=== PATIENT | female | born 1950 | race Caucasian/White ===

== ENCOUNTER → 2016-10-23 | Outpatient (CLI) | payer MEDICARE, OTHER ==
[~2016-10-23] MED LIST: /CELE20CA OR; /CLON1TA OR; /ESCI20TA OR; /ESOM40CA OR; /ROPI1TA PO; /WARF25TA PO; ACET50TA PO; ALB2.5NEB INH; ASPIRIN PO; BENZ100C5 PO; BYSTOLIC OR; CELEBREX PO; CETI10TA OR; CYMB60CA3 PO; DIOV320T OR; ESTR3TA OR; GLUC40GE PO; HYDR25TA6 OR; LEVO50TA2 OR; META800T82 PO; METF500T PO; MOME50SP; NASONEX; NORV5TAB OR; OXYB5TAB4 OR; OXYBUTIN PO; PERC7.5T12 PO; PERCOCET PO; PREG50CA OR; PROAAER INH; ROSU10TA OR; ST J81CH PO; TRIL135C PO; TYLE325T5 PO; VICODINES TAB OR; VIT D 2000 OR; ZYRTEC PO
--- NOTE | 2016-11-15 00:20 | ECWPNPC ---
PATIENT NAME: KUSHAL GARNETT : 1950 GENDER: FEMALE VISIT DATE: 10/23/2016 DISCHARGE DATE: 10/23/16 1505 VISIT LOCKED DATE TIME: PHYSICIAN: ALEKSANDER HIRSCH RESOURCE: ALEKSANDER HIRSCH REASON FOR APPOINTMENT 1. LOW BACK PAIN HISTORY OF PRESENT ILLNESS NEW PATIENT CONSULT: WHEN DID YOUR PAIN FIRST START? . BRIEFLY DESCRIBE HOW YOUR PAIN STARTED? . HOW DOES YOUR PAIN CHANGE WITH TIME? . DOES YOUR PAIN AWAKEN YOU FROM SLEEP? . HOW MANY HOURS OF SLEEP DO YOU NORMALLY GET? . ANY DIAGNOSTIC TESTING? . FACILITY WHERE TESTS WERE DONE? ____. PAIN TREATMENT TREATMENT YES CANCER HAVE YOU EVER HAD ANY TYPE OF CANCER?NO NO. PAIN SCREENING: PATIENT HAS A COMPLAINT OF ACUTE OR CHRONIC PAIN YES FALL RISK SCREENING: SCREENING :NO FALLS IN THE PAST YEAR NASH INVENTORY: QUESTIONNAIRE ASSESSEDYES SCORE VALUE CALCULATED YES SCORE: DENIES SUICIDAL OR HOMICIDAL IDEATION TODAY'S VISIT: NOTES: HAS HAD PERSISTANT BACK PAIN SINCE PREGNAY IN 1967. PAIN HAS GOTTEN WORSE IN LAST 2 YEARS. PAIN IS LOCATED IN SCIATIC RADIATING DOWN BOTH LEGS. WALKING INCREASING PAIN IN BUTTUCK. CAN ALTERNATE OR BE ON BOTH SIDES AT THE SAME TIME. N/T IN FEET 80% OF TIME FELT TO BE SECONDARY TO DPN. HARD TO STAND UP - NEEDS ASSISTANCE. CAN NOT WALK A DISTANCE. STRUGGLING TO CLIMB STEPS, LIFTING RIGHT LEG TO CAR. LEGS FEEL WEAK. HAS FALLEN MULTIPLE TIMES - CAN'T CONTROL FEET. IS ABLE TO SLEEP AFTER GETS COMFORTABLE. HAS BEEN TO PT YEARS AGO. NI, WAS SEEN HERE BY DR TIMBO GREENE AT [facility] YEARS AGO. (2011) . CURRENT MEDICATIONS TAKING METFORMIN HCL 500 MG TABLET 1 TABLET WITH MEALS ORALLY 3 TIMES A DAY TAKING BENZONATATE 100 MG CAPSULE 2 CAPSULES ORALLY THREE TIMES A DAY TAKING NASONEX 50 MCG/ACT SUSPENSION 2 SPRAYS IN EACH NOSTRIL NASALLY ONCE A DAY TAKING CLONIDINE HCL 0.1 MG TABLET 1 TABLET AT BEDTIME ORALLY THREE TIMES A DAY TAKING AMLODIPINE BESYLATE 5 MG TABLET 1 TABLET ORALLY ONCE A DAY TAKING HYDROCHLOROTHIAZIDE 25 MG TABLET 1 TABLET ORALLY ONCE A DAY TAKING NEXIUM 40 MG CAPSULE DELAYED RELEASE 1 CAPSULE ORALLY ONCE A DAY TAKING CYMBALTA 60 MG CAPSULE DELAYED RELEASE PARTICLES 1 CAPSULE ORALLY ONCE A DAY TAKING LEVOTHYROXINE SODIUM 88 MCG TABLET 1 TABLET ON AN EMPTY STOMACH IN THE MORNING ORALLY ONCE A DAY TAKING TRILIPIX 135 MG CAPSULE DELAYED RELEASE 1 CAPSULE ORALLY ONCE A DAY TAKING BYSTOLIC 10 MG TABLET 1 TABLET ORALLY ONCE A DAY TAKING CELEBREX 200 MG CAPSULE 1 CAPSULE ORALLY ONCE A DAY TAKING OXYBUTYNIN CHLORIDE ER 10 MG TABLET EXTENDED RELEASE 24 HOUR 1 TABLET ORALLY ONCE A DAY TAKING DIOVAN 320 MG TABLET 1 TABLET ORALLY ONCE A DAY TAKING LYRICA 50 MG CAPSULE 1 CAPSULE ORALLY FOUR TIMES A DAY TAKING HYDROCODONE-ACETAMINOPHEN 7.5-300 MG TABLET 1 TABLET NEEDED ORALLY TWICE DAILY TAKING ZYRTEC ALLERGY 10 MG TABLET 1 TABLET ORALLY ONCE A DAY TAKING REQUIP 1 MG TABLET ORALLY ONE TABLET AT BEDTIME NEEDED TAKING BONIVA 150 MG TABLET 1 TABLET ORALLY MONTHLY MEDICATION LIST REVIEWED AND RECONCILED WITH THE PATIENT PAST MEDICAL HISTORY ESOPHAGEAL REFLUX ENLARGED HEART HYPERTENSION HYPERCHOLESTEROLEMIA HYPOTHYROIDISM DIABETES MALLITUS ARTHRITIS ASTHMA IBS-D ALLERGIES PENICILLIN (FOR ALLERGIES USE ONLY): HIVES, SWELLING: ALLERGY SHELLFISH SURGICAL HISTORY HYSTERECTOMY 1977 CHOLECYSTECTOMY RIGHT SHOULDER CARPAL TUNNEL RELEASE RIGHT CARPAL TUNNEL RELEASE LEFT KNEE REPLACEMENT 2012 BLADDER LIFT 2012 LENSES KNEE REPLACEMENT 2013 FAMILY HISTORY FATHER: 74 YRS, LUNG DISEASE MOTHER: 57 YRS, [place], DIAGNOSED WITH HEART DISEASE SOCIAL HISTORY GENERAL: TOBACCO USE ARE YOU A:CURRENT SMOKER ALCOHOL SCREENING DID YOU HAVE A DRINK CONTAINING ALCOHOL IN THE PAST YEAR?NO POINTS0 INTERPRETATIONNEGATIVE RECREATIONAL DRUG USE DRUG USE?NO CAFFEINE CAFFEINE USE?NO CONGREGATION: DENOMINATIONAL. LANGUAGE: GEORGIAN. LEARNING BARRIERS / SPECIAL NEEDS BARRIERS TO LEARNING?YES COMMENTS HEARING IMPAIRED HEARING IMPAIRED?YES :HEARING AIDES LOOK AT PT WHEN SPEAKING TO HER. VISION IMPAIRED?YES :CORRECTIVE LENSES READINESS TO LEARN?YES LEARNING PREFERENCES?NO LEARNING CAPABILITIES PRESENT?YES EMOTIONAL BARRIERS?NO SPECIAL DEVICES?NO PSYCHOLOGICAL HX TREATMENTNO PAIN CLINIC PFS, CLERGY, PUBLIC HEALTH REFERRALS PFS REFERRAL NEEDED?NO CLERGY REFERRAL NEEDED?NO PUBLIC HEALTH REFERRAL NEEDED?NO WAS THE PROVIDER NOTIFIED OF ANY PERTINENT INFO?NO PATIENT: ____. ADVANCED DIRECTIVES HEALTH CARE PROXY?NO POWER OF HOSPICE HOME HEALTH AIDE?NO HOSPITALIZATION/MAJOR DIAGNOSTIC PROCEDURE SURGERIES REVIEW OF SYSTEMS CONSTITUTIONAL: ANY CHANGE IN YOUR MEDICAL CONDITION? NO . CHILLS NO . FEVER NO . INFECTION: DO YOU HAVE NEW INFECTIONS? NO . DO YOU HAVE HISTORY OF MRSA? NO . MUSCULOSKELETAL: ANY NEW PATTERNS OF PAIN OR NUMBNESS? NO . SYTEMIC LUPUS NO . GASTROENTEROLOGY: ANY NEW CHANGE IN BOWEL CONTROL? NO - IBS-D ON IMMODIUM . BARRETTS ESOPHAGUS NO . CIRRHOSIS NO . HEPATITIS NO . LIVER FAILURE NO . ACID REFLUX YES NEXIUM WITH GOOD EFFECT . UNEXPLAINED WEIGHT LOSS NO . GENITOURINARY: ANY NEW CHANGE IN BLADDER CONTROL? NO . IS THERE A CHANCE YOU COULD BE ? NO . HEMATOLOGY/LYMPH: DO YOU TAKE ANY BLOOD THINNERS? (FOR EXAMPLE- COUMADIN, PLAVIX, AGGRENOX, PLATEL, PRADAXA, OR XARELTO) NO . WHEN WAS YOUR LAST DOSE? DATE: TIME: . LOW PLATELET COUNT NO . SICKLE CELL DISEASE NO . VON WILLIEBRANDS NO . FACTOR V LEIDEN NO . THALLASEMIA NO . ANEMIA NO . EASY BRUISING NO . NEUROLOGY: HAVE YOU FALLEN IN THE PAST 6 MONTHS? NO . ANY NEW EXTREMITY NUMBNESS OR WEAKNESS? NO . HEAD INJURY NO . DEMENTIA NO . CEREBRAL PALSY NO . MULTIPLE SCLEROSIS NO . DIZZINESS NO . HEADACHE NO . STROKES NO . VERTIGO YES WITH TINNITUS AND HEARING LOSS. IS GOING TO BE SEEN BY ENT . CARDIOLOGY: DO YOU HAVE A PACEMAKER OR DEFIBRILLATOR? NO . ANGINA NO . HEART ATTACK NO . HEART SURGERY NO . CONGESTIVE HEART FAILURE/FLUID OVERLOAD NO . CHEST PAIN NO . HIGH BLOOD PRESSURE YES, HX OF ENLARGED HEART . IRREGULAR HEART BEAT NO . RESPIRATORY: HAVE YOU BEEN SICK IN THE PAST WEEK? NO . FEVER NO . FLU LIKE SYMPTOMS? NO . CPAP NO . BYPAP NO . ASTHMA NO . EMPHYSEMA NO . CHRONIC LUNG DISEASES NO . SHORTNESS OF BREATH ON EXERTION NO . DO YOU USE ANY TYPE OF TOBACCO (SMOKE, SMOKELESS, CHEW)? NO . COUGH NO . SNORING NO . INTEGUMENTARY: DO YOU HAVE ANY RASHES OR OPEN SORES? NO . ALLERGIC/IMMUNO: ARE YOU ALLERGIC TO SHELLFISH OR IV DYE? NO . ANY NEW ALLERGIES? NO . PSYCHIATRIC: DO YOU HAVE THOUGHTS OF HURTING YOURSELF OR SOMEONE ELSE? NO . ARE YOU ABUSED, NEGLECTED, OR IN AN UNSAFE ENVIRONMENT? NO . ENDOCRINOLOGY: ARE YOU DIABETIC? YES - ELAVATED RECENTLY . THYROID DISORDER NO . OTHER: DO YOU NEED ANY PRESCRIPTIONS? NO . IF YES, PLEASE LIST: ____ . ANY NEW PROBLEMS WITH YOUR MEDICATIONS? NO . WHEN DID YOU LAST EAT? ____ . WHEN DID YOU LAST DRINK? ____ . WHAT DID YOU LAST DRINK? ____ . NAME OF PERSON DRIVING YOU HOME? ____ . DO YOU HAVE ANY OTHER QUESTIONS OR CONCERNS NO . REVIEWED BY: PROVIDER: ALEKSANDER THOMAS . VITAL SIGNS WT 213.6 LBS, HT 65", BMI 35.54 INDEX, BP 165/88 MM HG, HR 71 /MIN, RR 16 /MIN, TEMP 98.6 F, OXYGEN SAT % 96, NA INITIALS TL 1317, REVIEWED BY: LS. EXAMINATION GENERAL EXAMINATION: PSYCHORIENTED X 3 , ALERT , APPROPRIATE MOOD AND AFFECT , GOOD EYE CONTACT. HEENT:NORMOCEPHALIC, NO LYMPHADENOPATHY, NO THYROMEGLY. LUNGS:CLEAR TO AUSCULTATION BILATERALLY, NO WHEEZES, RALES OR RHONCHI. HEART:HEART RATE REGULAR, NORMAL S1S2, NO MURMURS, CLICK OR RUBS. MUSCULOSKELETAL:MUSCLE STRENGTH TESTING 5/5 BILATERAL LOWER EXTTREMITIES. POINT TENDERNESS OVER LUMBAR SPINAOUS PROCESSES AND ACROSS LUMBOSACRAL AXIS. NO MING WITH PELVIC COMPRESSION. SLR POSITIVE AT 30 DEGREES ON LEFT. CAN FLEX TO 45 DEGREES, EXTEND TO 10 DEGREES, AND ROTATE WITHOUT DIFFICULTY. . NEUROLOGIC EXAM:DECREASED SENSATION IN STOCKINGGLOVE FASHION TO MID CALF BILATERALLY. DTR'S TRACE/ABSENTIN BILATERAL LOWER EXTREMITIES. . ASSESSMENTS LOW BACK PAIN - M54.5 (PRIMARY) OTHER CHRONIC PAIN - G89.29 LUMBAR RADICULOPATHY - M54.16 GAIT DISTURBANCE - R26.9 TREATMENT LOW BACK PAIN [facility] WITHOUT [id number] INJECTION FACET JOINT/NERVE LUMBAR/SACRALWALALEKSANDER PANDA 10/23/2016 2:45:04 PM > DIAGNOSTIC LUMBAR BILATERAL FACET BLOCK NOTES: CONSIDER PARVIN CREAM WITH LIDOCAINE TO LOW BACK 4 TIMES PER DAY,FACET JOINT INJECTION: YOUR EXPERIENCE MATERIAL WAS PRINTED, FALLS CARE PLAN: 1. RECOMMEND REMOVING ALL THROW RUGS. 2. RECOMMEND NIGHT LIGHTS 3. RECOMMEND WEARING RUBBER SOLED SHOES AND TO NOT GO BAREFOOT. 4.. ADVISED TO CHANGE POSITION SLOWLY FROM SUPINE TO STANDING TO AVOID DIZZINESS. 5. ADVISED TO USE ASSISTIVE DEVICE SUCH CANE OR WALKER 6. USE LIFELINE SERVICES OR KEEP PORTABLE PHONE READILY AVAILABLE, # [phone] TOBACCO USE SCREENING/INTERVENTION: PATIENT CURRENTLY USED TOBACCO. WAS OFFERED SMOKING CESSATION FOR GUIDANCE IN QUITTING THROUGH THE [facility] QUITS PROGRAM AND THE [facility] CESSATION PROGRAM. , #128 - SCREENING BMI AND F/U PLAN IN : BMI ABOVE NORMAL TODAY. DISCUSSED WITH PATIENT NUTRITIONAL FOOD CHOICES TO ASSIST WITH WEIGHT LOSS. RECCOMMENDED REDUCING SALT, SUGAR, SODA INTAKE. RECOMMEND INCREASE ACTIVITY TO INCLUDE WALKING ON A REGULAR BASIS. CLINICAL NOTES: ISTOP REGISTRY REVIEWED AND DEMNOSTRATES COMPLLIANCE. PREVENTIVE MEDICINE PAIN CLINIC TEACHING: PROCEDURE TEACHING PRE DIAGNOSTIC LUMBAR FACET BLOCK INSTRUCTIONS REVIEWED WITH PT. VERBALIZED UNDERSTANDING. KRAMES FACET INJECTION INFORMATION PRINTED AND GIVEN TO PT. . PROCEDURE CODES FA211 ESTABILISHED PATIENT [facility] FACILITY CHARGE G8783 BP SCR PRFRM RCMDD DEFIND SCR INTVL G8730 PAIN ASSESS POS TOOL F/U PLAN DOC 3016F PT SCRND UNHLTHY OH USE 1124F ACP DISCUSS-NO DSCNMKR DOCD 0518F FALL PLAN OF CARE DOCD G8427 DOC MEDS VERIFIED W/PT OR RE G8417 BMI >=30 CALCUATE W/FOLLOWUP 3288F FALL RISK ASSESSMENT DOCD 4004F PT TOBACCO SCREEN RCVD TLK FOLLOW UP SCHEDULE FOR DIAGNOSTIC LUMBAR FACET BLOCK BILATERAL IN ONE MONTH (REASON: CHECK AUTH FOR LUMBAR MRI AND DIAGNOSTIC LUMBAR FACET BLOCK) ELECTRONICALLY SIGNED BY JARED APONTE ON 11/14/2016 AT 01:40 PM EST DISCLAIMER : THIS IS A VISIT SUMMARY [facility]TRACTED FROM [facility]. IT IS NOT A COPY OF THE [employer] PROGRESS NOTE. MTDD
== END ==
LOC: M PAIN 13:20
PROVIDERS: ATTEND Nurse Practitioner Family
DX: G89.29 Other chronic pain (principal); M54.16 Radiculopathy, lumbar region; R26.9 Unspecified abnormalities of gait and mobility; K21.9 Gastro-esophageal reflux disease without esophagitis; I51.7 Cardiomegaly; I10 Essential (primary) hypertension; E78.00 Pure hypercholesterolemia, unspecified; E03.9 Hypothyroidism, unspecified; E11.9 Type 2 diabetes mellitus without complications; M19.90 Unspecified osteoarthritis, unspecified site; J45.909 Unspecified asthma, uncomplicated; K58.0 Irritable bowel syndrome with diarrhea; Z88.0 Allergy status to penicillin; Z91.013 Allergy to seafood; F17.200 Nicotine dependence, unspecified, uncomplicated; Z79.84 Long term (current) use of oral hypoglycemic drugs; Z79.891 Long term (current) use of opiate analgesic; Z79.899 Other long term (current) drug therapy; Z86.69 Personal history of other diseases of the nervous system and sense organs

== ENCOUNTER → 2016-12-07 | Outpatient (CLI) | payer MEDICARE, OTHER ==
[~2016-12-07] MED LIST changes: +BUPIVACAINE HCL 0.25% 30 ML VIAL As Ordered ONE; +ISOVUE-M 300 61% 15ML VIAL (Q9967) As Ordered ONE; +LIDOCAINE 1% SDV INJ 30 ML VIAL As Ordered ONE
--- NOTE | 2016-12-07 12:34 | REP ---
PARTIAL LUMBAR SPINE SERIES: SINGLE VIEW. HISTORY: Lumbar facet block for pain. 33 seconds of fluoroscopy time is reported. FINDINGS: A single fluoroscopically obtained last image hold spot radiograph of the lumbar spine documents various needle positions and contrast injections associated with lumbar spine facet injection procedure. Signed by Manny Rojas MD 12/07/2016 04:45 P
--- NOTE | 2016-12-12 23:06 | ECWPNPC ---
PATIENT NAME: KUSHAL GARNETT : 1950 GENDER: FEMALE VISIT DATE: 12/07/2016 DISCHARGE DATE: 12/07/16 1034 VISIT LOCKED DATE TIME: PHYSICIAN: ARNOLD QUINONES RESOURCE: ARNOLD QUINONES REASON FOR APPOINTMENT 1. LFBD HISTORY OF PRESENT ILLNESS HISTORY OF PRESENT ILLNESS: PAIN THE PATIENT DESCRIBES THE PAIN... FALL RISK SCREENING: SCREENING :NO FALLS IN THE PAST YEAR CURRENT MEDICATIONS TAKING METFORMIN HCL 500 MG TABLET 1 TABLET WITH MEALS ORALLY 3 TIMES A DAY, NOTES: 12/06/162029 TAKING BENZONATATE 100 MG CAPSULE 2 CAPSULES ORALLY THREE TIMES A DAY, NOTES: NONE RECENTLY TAKING NASONEX 50 MCG/ACT SUSPENSION 2 SPRAYS IN EACH NOSTRIL NASALLY ONCE A DAY NEEDED, NOTES: NONE RECENTLY TAKING CLONIDINE HCL 0.1 MG TABLET 1 TABLET ORALLY THREE TIMES A DAY, NOTES: 12/06/162029 TAKING AMLODIPINE BESYLATE 5 MG TABLET 1 TABLET ORALLY ONCE A DAY, NOTES: 12/07/16599 TAKING HYDROCHLOROTHIAZIDE 25 MG TABLET 1 TABLET ORALLY ONCE A DAY, NOTES: 12/07/16599 TAKING NEXIUM 40 MG CAPSULE DELAYED RELEASE 1 CAPSULE ORALLY ONCE A DAY, NOTES: 12/07/16599 TAKING CYMBALTA 60 MG CAPSULE DELAYED RELEASE PARTICLES 1 CAPSULE ORALLY ONCE A DAY, NOTES: 12/07/16599 TAKING LEVOTHYROXINE SODIUM 88 MCG TABLET 1 TABLET ON AN EMPTY STOMACH IN THE MORNING ORALLY ONCE A DAY, NOTES: 12/07/16599 TAKING TRILIPIX 135 MG CAPSULE DELAYED RELEASE 1 CAPSULE ORALLY ONCE A DAY, NOTES: 12/07/16599 TAKING BYSTOLIC 10 MG TABLET 1 TABLET ORALLY ONCE A DAY, NOTES: 12/07/16599 TAKING CELEBREX 200 MG CAPSULE 1 CAPSULE ORALLY ONCE A DAY, NOTES: 12/07/16599 TAKING OXYBUTYNIN CHLORIDE ER 10 MG TABLET EXTENDED RELEASE 24 HOUR 1 TABLET ORALLY ONCE A DAY, NOTES: 12/07/16599 TAKING DIOVAN 320 MG TABLET 1 TABLET ORALLY ONCE A DAY, NOTES: 12/07/16599 TAKING LYRICA 50 MG CAPSULE 1 CAPSULE ORALLY FOUR TIMES A DAY, NOTES: 12/07/16599 TAKING HYDROCODONE-ACETAMINOPHEN 7.5-300 MG TABLET 1 TABLET NEEDED ORALLY TWICE DAILY, NOTES: MORE THAN A WEEK AGO TAKING ZYRTEC ALLERGY 10 MG TABLET 1 TABLET ORALLY ONCE A DAY NEEDED, NOTES: LAST FALL TAKING REQUIP 1 MG TABLET ORALLY ONE TABLET AT BEDTIME NEEDED, NOTES: NONE RECENTLY TAKING BONIVA 150 MG TABLET 1 TABLET ORALLY MONTHLY, NOTES: 11/07/16 MEDICATION LIST REVIEWED AND RECONCILED WITH THE PATIENT PAST MEDICAL HISTORY ESOPHAGEAL REFLUX ENLARGED HEART HYPERTENSION HYPERCHOLESTEROLEMIA HYPOTHYROIDISM DIABETES MALLITUS ARTHRITIS ASTHMA IBS-D ALLERGIES PENICILLIN (FOR ALLERGIES USE ONLY): HIVES, SWELLING: ALLERGY SHELLFISH SURGICAL HISTORY HYSTERECTOMY 1977 CHOLECYSTECTOMY RIGHT SHOULDER CARPAL TUNNEL RELEASE RIGHT CARPAL TUNNEL RELEASE LEFT KNEE REPLACEMENT 2013 BLADDER LIFT 2011 LENSES KNEE REPLACEMENT 2014 FAMILY HISTORY FATHER: 74 YRS, LUNG DISEASE LUNG DISEASE MOTHER: 57 YRS, [place], DIAGNOSED WITH HEART DISEASE SOCIAL HISTORY GENERAL: TOBACCO USE ARE YOU A:CURRENT SMOKER LEARNING BARRIERS / SPECIAL NEEDS ORIENTED TO PLAN OF CARE: PATIENT, PAIN MANAGEMENT PATIENT, ORIENTED TO PLAN OF CARE: PATIENT, PAIN MANAGEMENT PATIENT. NEW PATIENT PAIN DIARY TODAY'S VISITNOTES FROM 0-10, WHAT LEVEL IS YOUR PAIN TODAY?0 PAIN CLINIC PFS, CLERGY, PUBLIC HEALTH REFERRALS PFS REFERRAL NEEDED?NO CLERGY REFERRAL NEEDED?NO PUBLIC HEALTH REFERRAL NEEDED?NO WAS THE PROVIDER NOTIFIED OF ANY PERTINENT INFO?NO PFS REFERRAL NEEDED?NO CLERGY REFERRAL NEEDED?NO PUBLIC HEALTH REFERRAL NEEDED?NO WAS THE PROVIDER NOTIFIED OF ANY PERTINENT INFO?NO HOSPITALIZATION/MAJOR DIAGNOSTIC PROCEDURE SURGERIES REVIEW OF SYSTEMS CONSTITUTIONAL: ANY CHANGE IN YOUR MEDICAL CONDITION? NO . CHILLS NO . FEVER NO . INFECTION: DO YOU HAVE NEW INFECTIONS? NO . DO YOU HAVE HISTORY OF MRSA? NO . MUSCULOSKELETAL: ANY NEW PATTERNS OF PAIN OR NUMBNESS? NO . GASTROENTEROLOGY: ANY NEW CHANGE IN BOWEL CONTROL? NO . GENITOURINARY: ANY NEW CHANGE IN BLADDER CONTROL? NO . IS THERE A CHANCE YOU COULD BE ? NO . HEMATOLOGY/LYMPH: DO YOU TAKE ANY BLOOD THINNERS? (FOR EXAMPLE- COUMADIN, PLAVIX, AGGRENOX, PLATEL, PRADAXA, OR XARELTO) NO . WHEN WAS YOUR LAST DOSE? DATE: TIME: . NEUROLOGY: HAVE YOU FALLEN IN THE PAST 6 MONTHS? NO . ANY NEW EXTREMITY NUMBNESS OR WEAKNESS? NO . CARDIOLOGY: DO YOU HAVE A PACEMAKER OR DEFIBRILLATOR? NO . RESPIRATORY: HAVE YOU BEEN SICK IN THE PAST WEEK? NO . FEVER NO . FLU LIKE SYMPTOMS? NO . COUGH NO . INTEGUMENTARY: DO YOU HAVE ANY RASHES OR OPEN SORES? NO . ALLERGIC/IMMUNO: ARE YOU ALLERGIC TO SHELLFISH OR IV DYE? NO . ANY NEW ALLERGIES? NO . PSYCHIATRIC: DO YOU HAVE THOUGHTS OF HURTING YOURSELF OR SOMEONE ELSE? NO . ARE YOU ABUSED, NEGLECTED, OR IN AN UNSAFE ENVIRONMENT? NO . ENDOCRINOLOGY: ARE YOU DIABETIC? YES . OTHER: DO YOU NEED ANY PRESCRIPTIONS? NO . IF YES, PLEASE LIST: ____ . ANY NEW PROBLEMS WITH YOUR MEDICATIONS? NO . WHEN DID YOU LAST EAT? 1800 . WHEN DID YOU LAST DRINK? 0630 . WHAT DID YOU LAST DRINK? YVROSE VALERIE . NAME OF PERSON DRIVING YOU HOME? SHIVAM GARNETT . DO YOU HAVE ANY OTHER QUESTIONS OR CONCERNS NO . REVIEWED BY: PROVIDER: . VITAL SIGNS WT 213 LBS, HT 65", BMI 35.44 INDEX, BP 168/77 MM HG, HR 67 /MIN, RR 16 /MIN, TEMP 98.5 F, OXYGEN SAT % 96, NA INITIALS TL 0904, REVIEWED BY: LS. ASSESSMENTS SPONDYLOSIS WITHOUT MYELOPATHY OR RADICULOPATHY, LUMBAR REGION - M47.816 (PRIMARY) SPONDYLOSIS WITHOUT MYELOPATHY OR RADICULOPATHY, LUMBOSACRAL REGION - M47.817 PROCEDURES PN LUMBAR FACET BLOCK DIAGNOSTIC PRE PROCEDURE DIAGNOSIS LUMBAR SPONDYLOSIS, LUMBOSACRAL SPONDYLOSIS POST PROCEDURE DIAGNOSIS LUMBAR SPONDYLOSIS, LUMBOSACRAL SPONDYLOSIS PROCEDURE LEFT L4-L5 AND LEFT L5-S1 FACET BLOCK DIAGNOSTIC NUMBER #[address] ARNOLD QUINONES SUPERVISOR DECORATING NONE ANESTHESIA LOCAL PRE PROCEDURE NOTE THE PATIENT WITH HISTORY OF CHRONIC LOW BACK PAIN. I EVALUATED THE PATIENT AND REVIEWED THE CHART. I WENT OVER THE RISKS, ALTERNATIVES, AND BENEFITS ASSOCIATED WITH THIS PROCEDURE. THE PATIENT WOULD LIKE TO PROCEED AND GAVE CONSENT TO PERFORM THE PROCEDURE. AGREED WITH THE PATIENT WE ARE DOING THIS PROCEDURE TO DETERMINE IF THE PATIENT IS A CANDIDATE FOR A RADIOFREQUENCY ABLATION OF THE FACETS JOINTS. THE PATIENT DENIES UNEXPLAINABLE WEIGHT LOSS, FEVER, CHILLS, OR NEW CHANGES IN URINARY OR BOWEL CONTROL. DESCRIPTION OF PROCEDURE THE PATIENT WAS BROUGHT TO THE PROCEDURE ROOM AND PLACED IN THE PRONE POSITION. THE LUMBOSACRAL AREA WAS CLEANED WITH CHLORAPREP SOLUTION AND DRAPED ASEPTICALLY. THE PROCEDURE WAS DONE UNDER STERILE CONDITIONS. I CHECKED LATERALITY AND THE LEVEL WHERE THE PROCEDURE WAS GOING TO BE PERFORMED WITH THE PATIENT AND THE SUPPORTING STAFF AT THE MOMENT OF THE TIME OUT IN THE PROCEDURE ROOM. UNDER FLUOROSCOPIC GUIDANCE, TARGETS WERE SELECTED AT THE INTERSECTION OF THE LEFT TRANSVERSE PROCESS OF L4, L5 AND ALA OF S1 WITH ITS RESPECTIVE SUPERIOR ARTICULAR PROCESS. LIDOCAINE WAS USED TO NUMB THE SKIN AND THE SUBCUTANEOUS TISSUE BELOW IT. SPINAL NEEDLE, 22-GAUGE WAS ADVANCED UNDER FLUOROSCOPIC GUIDANCE AND FOLLOWING PATIENT FEEDBACK UNTIL THE TARGETS WERE REACHED. POSITION OF THE NEEDLES WAS VERIFIED WITH AP AND LATERAL VIEWS. AFTER PROPER POSITION OF THE NEEDLES WAS ACHIEVED, ISOVUE-M DYE 30% 0.1 ML WAS INJECTED AT EACH SITE SHOWING ADEQUATE SPREAD OF THE DYE. THEN A SOLUTION OF 0.4 ML OF BUPIVACAINE 0.25% WAS INJECTED AT EACH SITE. THERE WAS NO EVIDENCE OF BLOOD, PARESTHESIA OR CEREBROSPINAL FLUID DURING THE PROCEDURE. THE PATIENT WAS SENT TO THE RECOVERY ROOM. THE PATIENT WAS MOVING THE EXTREMITIES AND DOING WELL. THERE WAS NO COMPLICATION DURING THE PROCEDURE. FLUOROSCOPY TIME WAS 33 SECONDS POST PROCEDURE NOTE THE PATIENT WILL DOCUMENT HIS PAIN LEVEL AND RESPONSE TO THIS PROCEDURE EVERY 30 MINUTES. THE PATIENT WILL BE SEEN IN A FOLLOW UP IN THE NEXT FEW WEEKS. FURTHER DETERMINATION FOR HIS CASE WILL BE DONE AT THE NEXT VISIT. INSTRUCTIONS WERE GIVEN, QUESTIONS WERE ANSWERED, AND THE PATIENT EXPRESSED UNDERSTANDING AND AGREED WITH THE PLAN. INSTRUCTIONS WERE GIVEN, QUESTIONS WERE ANSWERED, PATIENT REPORTS UNDERSTANDING AND AGREES WITH THE PLAN. I, RACHEL REDD, DOCUMENTED THE ABOVE INFORMATION ACTING A SCRIBE FOR DR. QUINONES. I HAVE REVIEWED THE ABOVE DOCUMENT, WRITTEN BY RACHEL REDD SCRIBAlana AND I VERIFY THAT IT IS ACCURATE. DIAGNOSTIC IMAGING [facility] FACET BLOCK (PAIN)[id number] PROCEDURE CODES 83597 INJ PARAVERT F JNT L/S 1 LEV 18733 INJ PARAVERT F JNT L/S 2 LEV 6045F RADXPS IN END [id number] PXD DISPOSITION & COMMUNICATION FOLLOW UP 3 WEEKS ELECTRONICALLY SIGNED BY ARNOLD QUINONES MD ON 12/12/2016 AT 06:47 AM EST DISCLAIMER : THIS IS A VISIT SUMMARY EXTRACTED FROM THE [employer] CHART. IT IS NOT A COPY OF THE [employer] PROGRESS NOTE. MTDD
== END ==
LOC: M PAIN 08:40
PROVIDERS: ATTEND Anesthesiology
DX: G89.29 Other chronic pain (principal); M47.816 Spondylosis without myelopathy or radiculopathy, lumbar region; M47.817 Spondylosis without myelopathy or radiculopathy, lumbosacral region; K21.9 Gastro-esophageal reflux disease without esophagitis; I10 Essential (primary) hypertension; E78.00 Pure hypercholesterolemia, unspecified; E03.9 Hypothyroidism, unspecified; E11.9 Type 2 diabetes mellitus without complications; M19.90 Unspecified osteoarthritis, unspecified site; J45.909 Unspecified asthma, uncomplicated; K58.0 Irritable bowel syndrome with diarrhea; I51.7 Cardiomegaly; Z88.0 Allergy status to penicillin; Z91.013 Allergy to seafood; F17.200 Nicotine dependence, unspecified, uncomplicated; Z79.84 Long term (current) use of oral hypoglycemic drugs; Z79.899 Other long term (current) drug therapy
CPT/HCPCS: 64493; 64494; Q9967

== ENCOUNTER → 2017-01-07 | Outpatient (CLI) | payer MEDICARE, OTHER ==
[~2017-01-07] MED LIST changes: -BUPIVACAINE HCL 0.25% 30 ML VIAL As Ordered ONE; -ISOVUE-M 300 61% 15ML VIAL (Q9967) As Ordered ONE; -LIDOCAINE 1% SDV INJ 30 ML VIAL As Ordered ONE
--- NOTE | 2017-01-17 00:57 | ECWPNPC ---
PATIENT NAME: KUSHAL GARNETT : 1950 GENDER: FEMALE VISIT DATE: 01/07/2017 DISCHARGE DATE: 01/07/17 1236 VISIT LOCKED DATE TIME: PHYSICIAN: ALEKSANDER HIRSCH RESOURCE: ALEKSANDER HIRSCH HISTORY OF PRESENT ILLNESS HISTORY OF PRESENT ILLNESS: PAIN THE PATIENT DESCRIBES THE PAIN... FALL RISK SCREENING: SCREENING :NO FALLS IN THE PAST YEAR TODAY'S VISIT: NOTES: S/P LEFT DIAGAGNOSTIC LUMBAR FACET BLOCK #1 COMPLETED ON 12/07/16 AT L4-5 AND L5-S1. HAD 100 % RELIEF OF PAIN UNTIL NEXT MORNING AFTER PROCEDURE - THEN HAD 2 RANJEET DAYS WITH PAIN 03/16 AND 12/14 AND THEN PAIN WAS AGAIN SIGNIFICANTLY RELIEVED. . CURRENT MEDICATIONS TAKING METFORMIN HCL 500 MG TABLET 1 TABLET WITH MEALS ORALLY 3 TIMES A DAY, NOTES: 12/06/162029 TAKING BENZONATATE 100 MG CAPSULE 2 CAPSULES ORALLY THREE TIMES A DAY, NOTES: NONE RECENTLY TAKING NASONEX 50 MCG/ACT SUSPENSION 2 SPRAYS IN EACH NOSTRIL NASALLY ONCE A DAY NEEDED, NOTES: NONE RECENTLY TAKING CLONIDINE HCL 0.1 MG TABLET 1 TABLET ORALLY THREE TIMES A DAY, NOTES: 12/06/162029 TAKING AMLODIPINE BESYLATE 5 MG TABLET 1 TABLET ORALLY ONCE A DAY, NOTES: 12/07/16599 TAKING HYDROCHLOROTHIAZIDE 25 MG TABLET 1 TABLET ORALLY ONCE A DAY, NOTES: 12/07/16599 TAKING NEXIUM 40 MG CAPSULE DELAYED RELEASE 1 CAPSULE ORALLY ONCE A DAY, NOTES: 12/07/16599 TAKING CYMBALTA 60 MG CAPSULE DELAYED RELEASE PARTICLES 1 CAPSULE ORALLY ONCE A DAY, NOTES: 12/07/16599 TAKING LEVOTHYROXINE SODIUM 88 MCG TABLET 1 TABLET ON AN EMPTY STOMACH IN THE MORNING ORALLY ONCE A DAY, NOTES: 12/07/16599 TAKING TRILIPIX 135 MG CAPSULE DELAYED RELEASE 1 CAPSULE ORALLY ONCE A DAY, NOTES: 12/07/16599 TAKING BYSTOLIC 10 MG TABLET 1 TABLET ORALLY ONCE A DAY, NOTES: 12/07/16599 TAKING CELEBREX 200 MG CAPSULE 1 CAPSULE ORALLY ONCE A DAY, NOTES: 12/07/16599 TAKING OXYBUTYNIN CHLORIDE ER 10 MG TABLET EXTENDED RELEASE 24 HOUR 1 TABLET ORALLY ONCE A DAY, NOTES: 12/07/16599 TAKING DIOVAN 320 MG TABLET 1 TABLET ORALLY ONCE A DAY, NOTES: 12/07/16 0600 TAKING LYRICA 50 MG CAPSULE 1 CAPSULE ORALLY THREE TIMES DAILY, NOTES: 12/07/16 0600 TAKING HYDROCODONE-ACETAMINOPHEN 7.5-300 MG TABLET 1 TABLET NEEDED ORALLY TWICE DAILY, NOTES: MORE THAN A WEEK AGO TAKING ZYRTEC ALLERGY 10 MG TABLET 1 TABLET ORALLY ONCE A DAY NEEDED, NOTES: LAST FALL TAKING REQUIP 1 MG TABLET ORALLY ONE TABLET AT BEDTIME NEEDED, NOTES: NONE RECENTLY TAKING BONIVA 150 MG TABLET 1 TABLET ORALLY MONTHLY, NOTES: 11/07/16 TAKING JANUVIA 100 MG TABLET 1 TABLET ORALLY ONCE A DAY TAKING VITAMIN D 1000 UNIT TABLET 1 TABLET ORALLY ONCE A DAY MEDICATION LIST REVIEWED AND RECONCILED WITH THE PATIENT PAST MEDICAL HISTORY ESOPHAGEAL REFLUX ENLARGED HEART HYPERTENSION HYPERCHOLESTEROLEMIA HYPOTHYROIDISM DIABETES MALLITUS ARTHRITIS ASTHMA IBS-D ALLERGIES PENICILLIN (FOR ALLERGIES USE ONLY): HIVES, SWELLING: ALLERGY SHELLFISH DARVOCET-N 100 SOCIAL HISTORY GENERAL: PAIN CLINIC PFS, CLERGY, PUBLIC HEALTH REFERRALS CLERGY REFERRAL NEEDED?NO WAS THE PROVIDER NOTIFIED OF ANY PERTINENT INFO?NO PFS REFERRAL NEEDED?NO PUBLIC HEALTH REFERRAL NEEDED?NO PATIENT: ____. REVIEW OF SYSTEMS CONSTITUTIONAL: ANY CHANGE IN YOUR MEDICAL CONDITION? YES PT REPORTS RECENT BOUT OF BRONCHITIS, ON A Z-PACK 12/29. FEELS HER COUGHING HAS EXACERBATED HER BACK PAIN. BRONCHITIS IS RESOLVING. . CHILLS NO . FEVER NO . INFECTION: DO YOU HAVE NEW INFECTIONS? NO . DO YOU HAVE HISTORY OF MRSA? NO . MUSCULOSKELETAL: ANY NEW PATTERNS OF PAIN OR NUMBNESS? NO . GASTROENTEROLOGY: GENERAL RECENT GI BUG WITH DIARRHEA AND HAS HISTORY OF IBS . ANY NEW CHANGE IN BOWEL CONTROL? NO . GENITOURINARY: ANY NEW CHANGE IN BLADDER CONTROL? NO . IS THERE A CHANCE YOU COULD BE ? NO . HEMATOLOGY/LYMPH: DO YOU TAKE ANY BLOOD THINNERS? (FOR EXAMPLE- COUMADIN, PLAVIX, AGGRENOX, PLATEL, PRADAXA, OR XARELTO) NO . WHEN WAS YOUR LAST DOSE? DATE: TIME: . NEUROLOGY: HAVE YOU FALLEN IN THE PAST 6 MONTHS? NO . ANY NEW EXTREMITY NUMBNESS OR WEAKNESS? NO . CARDIOLOGY: DO YOU HAVE A PACEMAKER OR DEFIBRILLATOR? NO . RESPIRATORY: HAVE YOU BEEN SICK IN THE PAST WEEK? NO . FEVER NO . FLU LIKE SYMPTOMS? NO . COUGH IMPROVING - RECENT BRONCHITIS ON ABX . INTEGUMENTARY: DO YOU HAVE ANY RASHES OR OPEN SORES? NO . ALLERGIC/IMMUNO: ARE YOU ALLERGIC TO SHELLFISH OR IV DYE? NO . ANY NEW ALLERGIES? NO . PSYCHIATRIC: DO YOU HAVE THOUGHTS OF HURTING YOURSELF OR SOMEONE ELSE? NO . ARE YOU ABUSED, NEGLECTED, OR IN AN UNSAFE ENVIRONMENT? NO . ENDOCRINOLOGY: ARE YOU DIABETIC? YES - MEDS RECENTLY INCREASED. . OTHER: DO YOU NEED ANY PRESCRIPTIONS? NO . IF YES, PLEASE LIST: ____ . ANY NEW PROBLEMS WITH YOUR MEDICATIONS? NO . WHEN DID YOU LAST EAT? ____ . WHEN DID YOU LAST DRINK? ____ . WHAT DID YOU LAST DRINK? ____ . NAME OF PERSON DRIVING YOU HOME? ____ . DO YOU HAVE ANY OTHER QUESTIONS OR CONCERNS NO . REVIEWED BY: PROVIDER: ALEKSANDER THOMAS . VITAL SIGNS WT 213 LBS, HT 65", BMI 35.44 INDEX, BP 138/76 MM HG, HR 66 /MIN, RR 16 /MIN, TEMP 98.5 F, OXYGEN SAT % 94%, NA INITIALS SC 11:26. EXAMINATION GENERAL EXAMINATION: PSYCHORIENTED X 3 , ALERT , APPROPRIATE MOOD AND AFFECT , GOOD EYE CONTACT. LUNGS:CLEAR TO AUSCULTATION BILATERALLY, NO WHEEZES, RALES OR RHONCHI. HEART:HEART RATE REGULAR. MUSCULOSKELETAL:MUSCLE STRENGTH TESTING 5/5 BILATERAL LOWER EXTTREMITIES. POINT TENDERNESS OVER LUMBAR SPINAOUS PROCESSES AND ACROSS LUMBOSACRAL AXIS.SLOW TO RISE TO STANDING POSITION. POSTURE UPRIGHT, GAIT NONANTALGIC.. NEUROLOGIC EXAM:DECREASED SENSATION IN STOCKINGGLOVE FASHION TO MID CALF BILATERALLY. DTR'S TRACE/ABSENTIN BILATERAL LOWER EXTREMITIES. . ASSESSMENTS SPONDYLOSIS WITHOUT MYELOPATHY OR RADICULOPATHY, LUMBAR REGION - M47.816 (PRIMARY) SPONDYLOSIS WITHOUT MYELOPATHY OR RADICULOPATHY, LUMBOSACRAL REGION - M47.817 TREATMENT SPONDYLOSIS WITHOUT MYELOPATHY OR RADICULOPATHY, LUMBAR REGION INJECTION FACET JOINT/NERVE LUMBAR/SACRALALEKSANDER HIRSCH 01/07/2017 12:17:09 PM > DIAGNOSTIC # 2 LEFT NOTES: USE ICE AND HEAT. MEDS NEEDED. PREVENTIVE MEDICINE PAIN CLINIC TEACHING: PROCEDURE TEACHING REVIEWED LFBD PROCEDURE WITH PT, PT VERBALIZES UNDERSTANDING. PROCEDURE CODES FA211 ESTABILISHED PATIENT [facility] CHARGE G8730 PAIN ASSESS POS TOOL F/U PLAN DOC G8427 DOC MEDS VERIFIED W/PT OR RE DISPOSITION & COMMUNICATION FOLLOW UP 4-6 WEEKS (REASON: CHECK AUTH FOR DIAGNOSTIC #2) ELECTRONICALLY SIGNED BY JARED APONTE ON 01/16/2017 AT 07:11 PM EDT DISCLAIMER : THIS IS A VISIT SUMMARY EXTRACTED FROM THE [employer] CHART. IT IS NOT A COPY OF THE [employer] PROGRESS NOTE. ELVIND
== END | disposition home or self-care (01) ==
LOC: M PAIN 11:20
PROVIDERS: ATTEND Nurse Practitioner Family
DX: Z09 Encounter for follow-up examination after completed treatment for conditions other than malignant neoplasm (principal); G89.29 Other chronic pain; M47.816 Spondylosis without myelopathy or radiculopathy, lumbar region; M47.817 Spondylosis without myelopathy or radiculopathy, lumbosacral region; K21.9 Gastro-esophageal reflux disease without esophagitis; I10 Essential (primary) hypertension; E78.00 Pure hypercholesterolemia, unspecified; E03.9 Hypothyroidism, unspecified; E11.9 Type 2 diabetes mellitus without complications; M19.90 Unspecified osteoarthritis, unspecified site; J45.990 Exercise induced bronchospasm; K58.0 Irritable bowel syndrome with diarrhea; I51.7 Cardiomegaly; Z79.899 Other long term (current) drug therapy; Z79.84 Long term (current) use of oral hypoglycemic drugs; Z88.0 Allergy status to penicillin; Z88.5 Allergy status to narcotic agent; Z91.013 Allergy to seafood

== ENCOUNTER → 2017-01-22 | Outpatient (CLI) | payer MEDICARE, OTHER ==
[~2017-01-22] MED LIST changes: +BUPIVACAINE HCL 0.25% 30 ML VIAL As Ordered ONE; +ISOVUE-M 300 61% 15ML VIAL (Q9967) As Ordered ONE; +LIDOCAINE 1% SDV INJ 30 ML VIAL As Ordered ONE
--- NOTE | 2017-01-22 13:35 | REP ---
PARTIAL LUMBAR SPINE SERIES: Three views. HISTORY: Facet injection for pain. 28 seconds of fluoroscopy time is reported. FINDINGS: A sequence of three last image hold fluoroscopic spot radiographs of the lumbar spine document various needle positions and contrast injections associated with lumbar facet injection procedure. Signed by Manny Rojas MD 01/22/2017 03:40 P
--- NOTE | 2017-01-27 23:46 | ECWPNPC ---
PATIENT NAME: KUSHAL GARNETT : 1950 GENDER: FEMALE VISIT DATE: 01/22/2017 DISCHARGE DATE: 01/22/17 1218 VISIT LOCKED DATE TIME: PHYSICIAN: ARNOLD QUINONES RESOURCE: ARNOLD QUINONES REASON FOR APPOINTMENT 1. DIAG LUMBAR FACET # 2 HISTORY OF PRESENT ILLNESS HISTORY OF PRESENT ILLNESS: PAIN THE PATIENT DESCRIBES THE PAIN... FALL RISK SCREENING: SCREENING :NO FALLS IN THE PAST YEAR CURRENT MEDICATIONS TAKING METFORMIN HCL 500 MG TABLET 1 TABLET WITH MEALS ORALLY 3 TIMES A DAY, NOTES: 2229 LAST NIGHT TAKING BENZONATATE 100 MG CAPSULE 2 CAPSULES ORALLY THREE TIMES A DAY, NOTES: NONE RECENTLY TAKING NASONEX 50 MCG/ACT SUSPENSION 2 SPRAYS IN EACH NOSTRIL NASALLY ONCE A DAY NEEDED, NOTES: NONE RECENTLY TAKING CLONIDINE HCL 0.1 MG TABLET 1 TABLET ORALLY THREE TIMES A DAY, NOTES: 2229 LAST ROSENDA TAKING AMLODIPINE BESYLATE 5 MG TABLET 1 TABLET ORALLY ONCE A DAY, NOTES: 69901/22/17 TAKING HYDROCHLOROTHIAZIDE 25 MG TABLET 1 TABLET ORALLY ONCE A DAY, NOTES: 69901/22/17 TAKING NEXIUM 40 MG CAPSULE DELAYED RELEASE 1 CAPSULE ORALLY ONCE A DAY, NOTES: YESTERDAY AM TAKING CYMBALTA 60 MG CAPSULE DELAYED RELEASE PARTICLES 1 CAPSULE ORALLY ONCE A DAY, NOTES: YESTERDAY AM TAKING LEVOTHYROXINE SODIUM 88 MCG TABLET 1 TABLET ON AN EMPTY STOMACH IN THE MORNING ORALLY ONCE A DAY, NOTES: YESTERDAY AM TAKING TRILIPIX 135 MG CAPSULE DELAYED RELEASE 1 CAPSULE ORALLY ONCE A DAY, NOTES: YESTERDAY AM TAKING BYSTOLIC 10 MG TABLET 1 TABLET ORALLY ONCE A DAY, NOTES: 0701/22/17 TAKING CELEBREX 200 MG CAPSULE 1 CAPSULE ORALLY ONCE A DAY, NOTES: YESTERDAY AM TAKING OXYBUTYNIN CHLORIDE ER 10 MG TABLET EXTENDED RELEASE 24 HOUR 1 TABLET ORALLY ONCE A DAY, NOTES: YESTERDAY ASM TAKING DIOVAN 320 MG TABLET 1 TABLET ORALLY ONCE A DAY, NOTES: YESTERDAY AM TAKING LYRICA 50 MG CAPSULE 1 CAPSULE ORALLY THREE TIMES DAILY, NOTES: YESTERDAY AM TAKING HYDROCODONE-ACETAMINOPHEN 7.5-300 MG TABLET 1 TABLET NEEDED ORALLY TWICE DAILY, NOTES: OVER 3 DAYS TAKING ZYRTEC ALLERGY 10 MG TABLET 1 TABLET ORALLY ONCE A DAY NEEDED, NOTES: LAST MONTH TAKING REQUIP 1 MG TABLET ORALLY ONE TABLET AT BEDTIME NEEDED, NOTES: 3 NIGHTS AGO TAKING BONIVA 150 MG TABLET 1 TABLET ORALLY MONTHLY, NOTES: JANUARY 05 TAKING JANUVIA 100 MG TABLET 1 TABLET ORALLY ONCE A DAY, NOTES: YESTERDAY AM TAKING VITAMIN D 1000 UNIT TABLET 1 TABLET ORALLY ONCE A DAY, NOTES: YESTERDAY AM MEDICATION LIST REVIEWED AND RECONCILED WITH THE PATIENT PAST MEDICAL HISTORY ESOPHAGEAL REFLUX ENLARGED HEART HYPERTENSION HYPERCHOLESTEROLEMIA HYPOTHYROIDISM DIABETES MALLITUS ARTHRITIS ASTHMA IBS-D ALLERGIES PENICILLIN (FOR ALLERGIES USE ONLY): HIVES, SWELLING: ALLERGY SHELLFISH DARVOCET-N 100 SURGICAL HISTORY HYSTERECTOMY 1977 CHOLECYSTECTOMY RIGHT SHOULDER CARPAL TUNNEL RELEASE RIGHT CARPAL TUNNEL RELEASE LEFT KNEE REPLACEMENT 2013 BLADDER LIFT 2011 LENSES KNEE REPLACEMENT 2013 SOCIAL HISTORY GENERAL: PAIN CLINIC PFS, CLERGY, PUBLIC HEALTH REFERRALS CLERGY REFERRAL NEEDED?NO WAS THE PROVIDER NOTIFIED OF ANY PERTINENT INFO?NO PFS REFERRAL NEEDED?NO PUBLIC HEALTH REFERRAL NEEDED?NO PATIENT: ____. HOSPITALIZATION/MAJOR DIAGNOSTIC PROCEDURE SURGERIES REVIEW OF SYSTEMS CONSTITUTIONAL: ANY CHANGE IN YOUR MEDICAL CONDITION? NO . CHILLS NO . FEVER NO . INFECTION: DO YOU HAVE NEW INFECTIONS? NO . DO YOU HAVE HISTORY OF MRSA? NO . MUSCULOSKELETAL: ANY NEW PATTERNS OF PAIN OR NUMBNESS? NO . GASTROENTEROLOGY: ANY NEW CHANGE IN BOWEL CONTROL? NO . GENITOURINARY: ANY NEW CHANGE IN BLADDER CONTROL? NO . IS THERE A CHANCE YOU COULD BE ? NO . HEMATOLOGY/LYMPH: DO YOU TAKE ANY BLOOD THINNERS? (FOR EXAMPLE- COUMADIN, PLAVIX, AGGRENOX, PLATEL, PRADAXA, OR XARELTO) NO . WHEN WAS YOUR LAST DOSE? DATE: TIME: . NEUROLOGY: HAVE YOU FALLEN IN THE PAST 6 MONTHS? NO . ANY NEW EXTREMITY NUMBNESS OR WEAKNESS? NO . CARDIOLOGY: DO YOU HAVE A PACEMAKER OR DEFIBRILLATOR? NO . RESPIRATORY: HAVE YOU BEEN SICK IN THE PAST WEEK? NO . FEVER NO . FLU LIKE SYMPTOMS? NO . COUGH NO . INTEGUMENTARY: DO YOU HAVE ANY RASHES OR OPEN SORES? NO . ALLERGIC/IMMUNO: ARE YOU ALLERGIC TO SHELLFISH OR IV DYE? YES, SHELLFISH . ANY NEW ALLERGIES? NO . PSYCHIATRIC: DO YOU HAVE THOUGHTS OF HURTING YOURSELF OR SOMEONE ELSE? NO . ARE YOU ABUSED, NEGLECTED, OR IN AN UNSAFE ENVIRONMENT? NO . ENDOCRINOLOGY: ARE YOU DIABETIC? YES . OTHER: DO YOU NEED ANY PRESCRIPTIONS? NO . IF YES, PLEASE LIST: ____ . ANY NEW PROBLEMS WITH YOUR MEDICATIONS? NO . WHEN DID YOU LAST EAT? 830 PM . WHEN DID YOU LAST DRINK? 01/22/17 0700 . WHAT DID YOU LAST DRINK? YVROSE VALERIE . NAME OF PERSON DRIVING YOU HOME? SHIVAM GARNETT . DO YOU HAVE ANY OTHER QUESTIONS OR CONCERNS NO . REVIEWED BY: PROVIDER: . VITAL SIGNS WT 212 LBS, HT 65", BMI 35.27 INDEX, BP 142/69 MM HG, HR 69 /MIN, RR 16 /MIN, TEMP 97.7 F, OXYGEN SAT % 98%, NA INITIALS SC 10:11, REVIEWED BY: NL. ASSESSMENTS SPONDYLOSIS WITHOUT MYELOPATHY OR RADICULOPATHY, LUMBAR REGION - M47.816 (PRIMARY) SPONDYLOSIS WITHOUT MYELOPATHY OR RADICULOPATHY, LUMBOSACRAL REGION - M47.817 PROCEDURES PN LUMBAR FACET BLOCK DIAGNOSTIC PRE PROCEDURE DIAGNOSIS LUMBAR SPONDYLOSIS, LUMBOSACRAL SPONDYLOSIS POST PROCEDURE DIAGNOSIS LUMBAR SPONDYLOSIS, LUMBOSACRAL SPONDYLOSIS PROCEDURE LEFT L4-L5 AND LEFT L5-S1 FACET BLOCK DIAGNOSTIC NUMBER [address] ARNOLD QUINONES WOOD STRIP BLOCK FLOOR INSTALLER NONE ANESTHESIA LOCAL PRE PROCEDURE NOTE THE PATIENT WITH HISTORY OF CHRONIC LOW BACK PAIN. I EVALUATED THE PATIENT AND REVIEWED THE CHART. I WENT OVER THE RISKS, ALTERNATIVES, AND BENEFITS ASSOCIATED WITH THIS PROCEDURE. THE PATIENT WOULD LIKE TO PROCEED AND GAVE CONSENT TO PERFORM THE PROCEDURE. AGREED WITH THE PATIENT WE ARE DOING THIS PROCEDURE TO DETERMINE IF THE PATIENT IS A CANDIDATE FOR A RADIOFREQUENCY ABLATION OF THE FACETS JOINTS. THE PATIENT DENIES UNEXPLAINABLE WEIGHT LOSS, FEVER, CHILLS, OR NEW CHANGES IN URINARY OR BOWEL CONTROL DESCRIPTION OF PROCEDURE THE PATIENT WAS BROUGHT TO THE PROCEDURE ROOM AND PLACED IN THE PRONE POSITION. THE LUMBOSACRAL AREA WAS CLEANED WITH CHLORAPREP SOLUTION AND DRAPED ASEPTICALLY. THE PROCEDURE WAS DONE UNDER STERILE CONDITIONS. I CHECKED LATERALITY AND THE LEVEL WHERE THE PROCEDURE WAS GOING TO BE PERFORMED WITH THE PATIENT AND THE SUPPORTING STAFF AT THE MOMENT OF THE TIME OUT IN THE PROCEDURE ROOM. UNDER FLUOROSCOPIC GUIDANCE, TARGETS WERE SELECTED AT THE INTERSECTION OF THE LEFT TRANSVERSE PROCESS OF L4, L5 AND ALA OF S1 WITH ITS RESPECTIVE SUPERIOR ARTICULAR PROCESS. LIDOCAINE WAS USED TO NUMB THE SKIN AND THE SUBCUTANEOUS TISSUE BELOW IT. SPINAL NEEDLE, 22-GAUGE WAS ADVANCED UNDER FLUOROSCOPIC GUIDANCE AND FOLLOWING PATIENT FEEDBACK UNTIL THE TARGETS WERE REACHED. POSITION OF THE NEEDLES WAS VERIFIED WITH AP AND LATERAL VIEWS. AFTER PROPER POSITION OF THE NEEDLES WAS ACHIEVED, ISOVUE-M DYE 30% 0.1 ML WAS INJECTED AT EACH SITE SHOWING ADEQUATE SPREAD OF THE DYE. THEN A SOLUTION OF 0.4 ML OF BUPIVACAINE 0.25% WAS INJECTED AT EACH SITE. THERE WAS NO EVIDENCE OF BLOOD, PARESTHESIA OR CEREBROSPINAL FLUID DURING THE PROCEDURE. THE PATIENT WAS SENT TO THE RECOVERY ROOM. THE PATIENT WAS MOVING THE EXTREMITIES AND DOING WELL. THERE WAS NO COMPLICATION DURING THE PROCEDURE. FLUOROSCOPY TIME WAS 28 SECONDS POST PROCEDURE NOTE THE PATIENT WILL DOCUMENT HIS PAIN LEVEL AND RESPONSE TO THIS PROCEDURE EVERY 30 MINUTES. THE PATIENT WILL BE SEEN IN A FOLLOW UP IN THE NEXT FEW WEEKS. FURTHER DETERMINATION FOR HIS CASE WILL BE DONE AT THE NEXT VISIT. INSTRUCTIONS WERE GIVEN, QUESTIONS WERE ANSWERED, AND THE PATIENT EXPRESSED UNDERSTANDING AND AGREED WITH THE PLAN. INSTRUCTIONS WERE GIVEN, QUESTIONS WERE ANSWERED, PATIENT REPORTS UNDERSTANDING AND AGREES WITH THE PLAN. I, EYAD CALI, DOCUMENTED THE ABOVE INFORMATION ACTING A SCRIBE FOR DR. QUINONES. I HAVE REVIEWED THE ABOVE DOCUMENT, WRITTEN BY EYAD CALI SCRIBAlana AND I VERIFY THAT IT IS ACCURATE DIAGNOSTIC IMAGING [facility] FACET BLOCK (PAIN)[id number] PROCEDURE CODES 41848 INJ PARAVERT F JNT L/S 1 LEV 15630 INJ PARAVERT F JNT L/S 2 LEV 6045F RADXPS IN END [id number] PXD DISPOSITION & COMMUNICATION FOLLOW UP 3 WEEKS ELECTRONICALLY SIGNED BY ARNOLD QUINONES MD ON 01/27/2017 AT 05:05 PM EDT DISCLAIMER : THIS IS A VISIT SUMMARY EXTRACTED FROM THE [employer] CHART. IT IS NOT A COPY OF THE [employer] PROGRESS NOTE. MTDD
== END | disposition home or self-care (01) ==
LOC: M PAIN 10:20
PROVIDERS: ATTEND Anesthesiology
DX: G89.29 Other chronic pain (principal); M47.816 Spondylosis without myelopathy or radiculopathy, lumbar region; M47.817 Spondylosis without myelopathy or radiculopathy, lumbosacral region; I10 Essential (primary) hypertension; J45.909 Unspecified asthma, uncomplicated; E11.9 Type 2 diabetes mellitus without complications; J21.9 Acute bronchiolitis, unspecified; E78.00 Pure hypercholesterolemia, unspecified; E03.9 Hypothyroidism, unspecified; M19.90 Unspecified osteoarthritis, unspecified site; K58.0 Irritable bowel syndrome with diarrhea; I51.7 Cardiomegaly; Z79.899 Other long term (current) drug therapy; Z79.84 Long term (current) use of oral hypoglycemic drugs; Z88.0 Allergy status to penicillin; Z88.5 Allergy status to narcotic agent; Z91.013 Allergy to seafood
CPT/HCPCS: 64493; 64494; Q9967

== ENCOUNTER → 2017-02-13 | Outpatient (CLI) | payer MEDICARE, OTHER ==
[~2017-02-13] MED LIST changes: -BUPIVACAINE HCL 0.25% 30 ML VIAL As Ordered ONE; -ISOVUE-M 300 61% 15ML VIAL (Q9967) As Ordered ONE; -LIDOCAINE 1% SDV INJ 30 ML VIAL As Ordered ONE
--- NOTE | 2017-03-06 02:20 | ECWPNPC ---
PATIENT NAME: KUSHAL GARNETT : 1950 GENDER: FEMALE VISIT DATE: 02/13/2017 DISCHARGE DATE: 02/13/17 1153 VISIT LOCKED DATE TIME: PHYSICIAN: ALEKSANDER HIRSCH RESOURCE: ALEKSANDER HIRSCH REASON FOR APPOINTMENT 1. POST PROCEDURE HISTORY OF PRESENT ILLNESS HISTORY OF PRESENT ILLNESS: PAIN THE PATIENT DESCRIBES THE PAIN... FALL RISK SCREENING: SCREENING :NO FALLS IN THE PAST YEAR TODAY'S VISIT: NOTES: FOLLOW UP FOR LOW BACK PAIN S/P #2 DIAGNOSTIC LUMBAR FACET BLOCK AT L4-5 AND L5-S1 LEFT ON 01/22/17. NOTES PAIN PRIOR TO INJECTION WAS 6-7/10 IN THE LEFT SACRUM,; POST INJECTION WAS 0/10 FOR 3 DAYS. HAD BAD DAY ON 02/10/17 WITH PAIN RADIATING DOWN LEFT LEG TO LEVEL OF ANKLE. NO RECENT FALLS. . CURRENT MEDICATIONS TAKING METFORMIN HCL 500 MG TABLET 1 TABLET WITH MEALS ORALLY 3 TIMES A DAY TAKING BENZONATATE 100 MG CAPSULE 2 CAPSULES ORALLY THREE TIMES A DAY PRN TAKING NASONEX 50 MCG/ACT SUSPENSION 2 SPRAYS IN EACH NOSTRIL NASALLY ONCE A DAY NEEDED TAKING CLONIDINE HCL 0.1 MG TABLET 1 TABLET ORALLY THREE TIMES A DAY TAKING AMLODIPINE BESYLATE 5 MG TABLET 1 TABLET ORALLY ONCE A DAY TAKING HYDROCHLOROTHIAZIDE 25 MG TABLET 1 TABLET ORALLY ONCE A DAY TAKING NEXIUM 40 MG CAPSULE DELAYED RELEASE 1 CAPSULE ORALLY ONCE A DAY TAKING CYMBALTA 60 MG CAPSULE DELAYED RELEASE PARTICLES 1 CAPSULE ORALLY ONCE A DAY TAKING LEVOTHYROXINE SODIUM 88 MCG TABLET 1 TABLET ON AN EMPTY STOMACH IN THE MORNING ORALLY ONCE A DAY TAKING TRILIPIX 135 MG CAPSULE DELAYED RELEASE 1 CAPSULE ORALLY ONCE A DAY TAKING BYSTOLIC 10 MG TABLET 1 TABLET ORALLY ONCE A DAY TAKING CELEBREX 200 MG CAPSULE 1 CAPSULE ORALLY ONCE A DAY TAKING OXYBUTYNIN CHLORIDE ER 10 MG TABLET EXTENDED RELEASE 24 HOUR 1 TABLET ORALLY ONCE A DAY TAKING DIOVAN 320 MG TABLET 1 TABLET ORALLY ONCE A DAY TAKING LYRICA 50 MG CAPSULE 1 CAPSULE ORALLY THREE TIMES DAILY TAKING HYDROCODONE-ACETAMINOPHEN 7.5-300 MG TABLET 1 TABLET NEEDED ORALLY TWICE DAILY TAKING ZYRTEC ALLERGY 10 MG TABLET 1 TABLET ORALLY ONCE A DAY NEEDED TAKING REQUIP 1 MG TABLET ORALLY ONE TABLET AT BEDTIME NEEDED TAKING BONIVA 150 MG TABLET 1 TABLET ORALLY MONTHLY TAKING JANUVIA 100 MG TABLET 1 TABLET ORALLY ONCE A DAY TAKING VITAMIN D 1000 UNIT TABLET 1 TABLET ORALLY ONCE A DAY MEDICATION LIST REVIEWED AND RECONCILED WITH THE PATIENT PAST MEDICAL HISTORY ESOPHAGEAL REFLUX ENLARGED HEART HYPERTENSION HYPERCHOLESTEROLEMIA HYPOTHYROIDISM DIABETES MALLITUS ARTHRITIS ASTHMA IBS-D ALLERGIES PENICILLIN (FOR ALLERGIES USE ONLY): HIVES, SWELLING: ALLERGY SHELLFISH: SOMETIMES RASH AND ITCHING DARVOCET-N 100: RASH: ALLERGY STRAWBERRIES: SOMETIMES RASH AND ITCHING BEE STINGS: SWELLING AND REDNESS: ALLERGY SOCIAL HISTORY GENERAL: TOBACCO USE ARE YOU A:CURRENT SMOKER HOW MANY CIGARETTES A DAY DO YOU SMOKE?11-20 HOW SOON AFTER YOU WAKE UP DO YOU SMOKE YOUR FIRST CIGARETTE?6-30 MIN HOW OFTEN DO YOU SMOKE CIGARETTES?EVERY DAY PATIENT COUNSELED ON THE DANGERS OF TOBACCO USE AND URGED TO QUIT:02/13/2017 ARE YOU INTERESTED IN QUITTING?NOT READY TO QUIT COUNSELED THE PATIENT ON SMOKING EFFECTS, EDUCATION [id number]/10/2017 PAIN CLINIC PFS, CLERGY, PUBLIC HEALTH REFERRALS CLERGY REFERRAL NEEDED?NO WAS THE PROVIDER NOTIFIED OF ANY PERTINENT INFO?NO PFS REFERRAL NEEDED?NO PUBLIC HEALTH REFERRAL NEEDED?NO PATIENT: ____. REVIEW OF SYSTEMS CONSTITUTIONAL: ANY CHANGE IN YOUR MEDICAL CONDITION? NO . CHILLS NO . FEVER NO . INFECTION: DO YOU HAVE NEW INFECTIONS? NO . DO YOU HAVE HISTORY OF MRSA? NO . MUSCULOSKELETAL: ANY NEW PATTERNS OF PAIN OR NUMBNESS? NO . GASTROENTEROLOGY: ANY NEW CHANGE IN BOWEL CONTROL? NO . GENITOURINARY: ANY NEW CHANGE IN BLADDER CONTROL? NO . IS THERE A CHANCE YOU COULD BE ? NO . HEMATOLOGY/LYMPH: DO YOU TAKE ANY BLOOD THINNERS? (FOR EXAMPLE- COUMADIN, PLAVIX, AGGRENOX, PLATEL, PRADAXA, OR XARELTO) NO . WHEN WAS YOUR LAST DOSE? DATE: TIME: . NEUROLOGY: HAVE YOU FALLEN IN THE PAST 6 MONTHS? NO . ANY NEW EXTREMITY NUMBNESS OR WEAKNESS? NO . CARDIOLOGY: DO YOU HAVE A PACEMAKER OR DEFIBRILLATOR? NO . RESPIRATORY: HAVE YOU BEEN SICK IN THE PAST WEEK? NO . FEVER NO . FLU LIKE SYMPTOMS? NO . COUGH NO . INTEGUMENTARY: DO YOU HAVE ANY RASHES OR OPEN SORES? NO . ALLERGIC/IMMUNO: ARE YOU ALLERGIC TO SHELLFISH OR IV DYE? YES, HAS RASH AND ITCHING SOMETIMES WHEN SHE EATS SHELLFISH . ANY NEW ALLERGIES? NO . PSYCHIATRIC: DO YOU HAVE THOUGHTS OF HURTING YOURSELF OR SOMEONE ELSE? NO . ARE YOU ABUSED, NEGLECTED, OR IN AN UNSAFE ENVIRONMENT? NO . ENDOCRINOLOGY: ARE YOU DIABETIC? YES, BLOOD SUGARS 140'S. . OTHER: DO YOU NEED ANY PRESCRIPTIONS? NO . IF YES, PLEASE LIST: ____ . ANY NEW PROBLEMS WITH YOUR MEDICATIONS? NO . WHEN DID YOU LAST EAT? ____ . WHEN DID YOU LAST DRINK? ____ . WHAT DID YOU LAST DRINK? ____ . NAME OF PERSON DRIVING YOU HOME? ____ . DO YOU HAVE ANY OTHER QUESTIONS OR CONCERNS NO . REVIEWED BY: PROVIDER: ALEKSANDER THOMAS . VITAL SIGNS WT 212 LBS, HT 65", BMI 35.27 INDEX, BP 142/79 MM HG, HR 62 /MIN, RR 16 /MIN, TEMP 97.5 F, OXYGEN SAT % 93%, NA INITIALS SC 11:17, REVIEWED BY: AD. EXAMINATION GENERAL EXAMINATION: PSYCHORIENTED X 3 , ALERT , APPROPRIATE MOOD AND AFFECT , GOOD EYE CONTACT. LUNGS:CLEAR TO AUSCULTATION BILATERALLY, NO WHEEZES, RALES OR RHONCHI. HEART:HEART RATE REGULAR. MUSCULOSKELETAL:MUSCLE STRENGTH TESTING 5/5 BILATERAL LOWER EXTTREMITIES. MILD TENDERNESS OVER LUMBAR SPINAOUS PROCESSES AND ACROSS LUMBOSACRAL AXIS.SLOW TO RISE TO STANDING POSITION. POSTURE UPRIGHT, GAIT NONANTALGIC.. NEUROLOGIC EXAM:DECREASED SENSATION IN STOCKINGGLOVE FASHION TO MID CALF BILATERALLY. DTR'S TRACE/ABSENTIN BILATERAL LOWER EXTREMITIES. . ASSESSMENTS SPONDYLOSIS WITHOUT MYELOPATHY OR RADICULOPATHY, LUMBAR REGION - M47.816 (PRIMARY) SPONDYLOSIS WITHOUT MYELOPATHY OR RADICULOPATHY, LUMBOSACRAL REGION - M47.817 TREATMENT SPONDYLOSIS WITHOUT MYELOPATHY OR RADICULOPATHY, LUMBAR REGION RF FACET LUMBAR SACRAL ALEKSANDER ART 02/13/2017 11:39:09 AM > L$-5 , L5-S1 LEFT RADIOFREQ NOTES: HOLD DIABETES MEDS AM OF PROCEDURE. ,UNDERSTANDING RADIOFREQUENCY DENERVATION MATERIAL WAS PRINTED. PREVENTIVE MEDICINE PAIN CLINIC TEACHING: PROCEDURE TEACHING PRINTED INFORMATION ON RF GIVEN TO AND EXPLAINED TO PT. ALONG WITH PRE-PROCEDURE INSTRUCTIONS AND SHE VERBALIZED UNDERSTANDING ON BOTH. PROCEDURE CODES FA211 ESTABILISHED PATIENT [facility] FACILITY CHARGE P2132 PAIN ASSESS POS TOOL F/U PLAN DOC G8427 DOC MEDS VERIFIED W/PT OR RE DISPOSITION & COMMUNICATION FOLLOW UP AFTER INJECTION (REASON: [facility] AUTH AND SCHED FOR RFI) ELECTRONICALLY SIGNED BY JARED APONTE ON 03/05/2017 AT 08:32 AM EDT DISCLAIMER : THIS IS A VISIT SUMMARY EXTRACTED FROM THE [employer] CHART. IT IS NOT A COPY OF THE [employer] PROGRESS NOTE. ELVIND
== END | disposition home or self-care (01) ==
LOC: M PAIN 10:20
PROVIDERS: ATTEND Nurse Practitioner Family
DX: G89.29 Other chronic pain (principal); M47.816 Spondylosis without myelopathy or radiculopathy, lumbar region; M47.817 Spondylosis without myelopathy or radiculopathy, lumbosacral region; K21.9 Gastro-esophageal reflux disease without esophagitis; I51.7 Cardiomegaly; I11.9 Hypertensive heart disease without heart failure; E78.00 Pure hypercholesterolemia, unspecified; E03.9 Hypothyroidism, unspecified; E11.9 Type 2 diabetes mellitus without complications; M19.90 Unspecified osteoarthritis, unspecified site; J45.909 Unspecified asthma, uncomplicated; K58.0 Irritable bowel syndrome with diarrhea; Z79.899 Other long term (current) drug therapy; Z79.84 Long term (current) use of oral hypoglycemic drugs; Z88.0 Allergy status to penicillin; Z88.5 Allergy status to narcotic agent; Z91.013 Allergy to seafood; Z91.018 Allergy to other foods; Z91.030 Bee allergy status; F17.210 Nicotine dependence, cigarettes, uncomplicated

== ENCOUNTER → 2017-02-27 | Outpatient (CLI) | payer MEDICARE, OTHER ==
[~2017-02-27] MED LIST changes: +BUPIVACAINE HCL 0.25% 30 ML VIAL As Ordered ONE; +ISOVUE-M 300 61% 15ML VIAL (Q9967) As Ordered ONE; +LIDOCAINE 1% SDV INJ 30 ML VIAL As Ordered ONE; +TRIAMCINOLONE ACETONIDE SUSP 40 MG/ML VIAL (J3301) As Ordered ONE
--- NOTE | 2017-02-27 15:55 | REP ---
Partial lumbar spine series: Three views: History: Radiofrequency injection for pain. 50 seconds of fluoroscopy time is reported. Findings: A sequence of three fluoroscopically obtained last image hold intraprocedural spot radiographs of the lumbar spine document various needle positions for injection procedure. Signed by Manny Rojas MD 02/28/2017 08:59 A
--- NOTE | 2017-02-28 23:40 | ECWPNPC ---
PATIENT NAME: KUSHAL GARNETT : 1950 GENDER: FEMALE VISIT DATE: 02/27/2017 DISCHARGE DATE: 02/27/17 1555 VISIT LOCKED DATE TIME: PHYSICIAN: ARNOLD QUINONES RESOURCE: ARNOLD QUINONES REASON FOR APPOINTMENT 1. RADIO FREQUENCY HISTORY OF PRESENT ILLNESS HISTORY OF PRESENT ILLNESS: PAIN THE PATIENT DESCRIBES THE PAIN... FALL RISK SCREENING: SCREENING :NO FALLS IN THE PAST YEAR CURRENT MEDICATIONS TAKING METFORMIN HCL 500 MG TABLET 1 TABLET WITH MEALS ORALLY 3 TIMES A DAY, NOTES: PM TAKING BENZONATATE 100 MG CAPSULE 2 CAPSULES ORALLY THREE TIMES A DAY PRN, NOTES: AWHILE TAKING NASONEX 50 MCG/ACT SUSPENSION 2 SPRAYS IN EACH NOSTRIL NASALLY ONCE A DAY NEEDED, NOTES: AWHILE TAKING CLONIDINE HCL 0.1 MG TABLET 1 TABLET ORALLY THREE TIMES A DAY, NOTES: 11PM 02/26 17 TAKING AMLODIPINE BESYLATE 5 MG TABLET 1 TABLET ORALLY ONCE A DAY, NOTES: 0802/27/17 TAKING HYDROCHLOROTHIAZIDE 25 MG TABLET 1 TABLET ORALLY ONCE A DAY, NOTES: 0802/27/17 TAKING NEXIUM 40 MG CAPSULE DELAYED RELEASE 1 CAPSULE ORALLY ONCE A DAY, NOTES: 0802/27/17 TAKING CYMBALTA 60 MG CAPSULE DELAYED RELEASE PARTICLES 1 CAPSULE ORALLY ONCE A DAY, NOTES: YESTERDAY 08 TAKING LEVOTHYROXINE SODIUM 88 MCG TABLET 1 TABLET ON AN EMPTY STOMACH IN THE MORNING ORALLY ONCE A DAY, NOTES: 0802/26/17 TAKING TRILIPIX 135 MG CAPSULE DELAYED RELEASE 1 CAPSULE ORALLY ONCE A DAY, NOTES: 0802/27/17 TAKING BYSTOLIC 10 MG TABLET 1 TABLET ORALLY ONCE A DAY, NOTES: 0802/27/17 TAKING CELEBREX 200 MG CAPSULE 1 CAPSULE ORALLY ONCE A DAY, NOTES: LAST WEEK TAKING OXYBUTYNIN CHLORIDE ER 10 MG TABLET EXTENDED RELEASE 24 HOUR 1 TABLET ORALLY ONCE A DAY, NOTES: 0802/27/17 TAKING DIOVAN 320 MG TABLET 1 TABLET ORALLY ONCE A DAY, NOTES: YESTERDAY 08 TAKING LYRICA 50 MG CAPSULE 1 CAPSULE ORALLY THREE TIMES DAILY, NOTES: 1100 02/26/17 TAKING HYDROCODONE-ACETAMINOPHEN 7.5-300 MG TABLET 1 TABLET NEEDED ORALLY TWICE DAILY, NOTES: DAYS AGO TAKING ZYRTEC ALLERGY 10 MG TABLET 1 TABLET ORALLY ONCE A DAY NEEDED, NOTES: LAST WEEK TAKING REQUIP 1 MG TABLET ORALLY ONE TABLET AT BEDTIME NEEDED, NOTES: SATURDAY NIGHT TAKING BONIVA 150 MG TABLET 1 TABLET ORALLY MONTHLY, NOTES: DUE MARCH 07 TAKING JANUVIA 100 MG TABLET 1 TABLET ORALLY ONCE A DAY, NOTES: YESTERDAY 0800 TAKING VITAMIN D 1000 UNIT TABLET 1 TABLET ORALLY ONCE A DAY, NOTES: YESTERDAY AM MEDICATION LIST REVIEWED AND RECONCILED WITH THE PATIENT PAST MEDICAL HISTORY ESOPHAGEAL REFLUX ENLARGED HEART HYPERTENSION HYPERCHOLESTEROLEMIA HYPOTHYROIDISM DIABETES MALLITUS ARTHRITIS ASTHMA IBS-D ALLERGIES PENICILLIN (FOR ALLERGIES USE ONLY): HIVES, SWELLING: ALLERGY SHELLFISH: SOMETIMES RASH AND ITCHING DARVOCET-N 100: RASH: ALLERGY STRAWBERRIES: SOMETIMES RASH AND ITCHING BEE STINGS: SWELLING AND REDNESS: ALLERGY TEQUIN - DUE TO PENICILLIN ALLERGY REVIEW OF SYSTEMS CONSTITUTIONAL: ANY CHANGE IN YOUR MEDICAL CONDITION? NO . CHILLS NO . FEVER NO . INFECTION: DO YOU HAVE NEW INFECTIONS? NO . DO YOU HAVE HISTORY OF MRSA? NO . MUSCULOSKELETAL: ANY NEW PATTERNS OF PAIN OR NUMBNESS? YES , NOW PAIN DOWN HER LEG TOO . GASTROENTEROLOGY: ANY NEW CHANGE IN BOWEL CONTROL? NO . GENITOURINARY: ANY NEW CHANGE IN BLADDER CONTROL? NO . IS THERE A CHANCE YOU COULD BE ? NO . HEMATOLOGY/LYMPH: DO YOU TAKE ANY BLOOD THINNERS? (FOR EXAMPLE- COUMADIN, PLAVIX, AGGRENOX, PLATEL, PRADAXA, OR XARELTO) NO . WHEN WAS YOUR LAST DOSE? DATE: TIME: . NEUROLOGY: HAVE YOU FALLEN IN THE PAST 6 MONTHS? NO . ANY NEW EXTREMITY NUMBNESS OR WEAKNESS? NO . CARDIOLOGY: DO YOU HAVE A PACEMAKER OR DEFIBRILLATOR? NO . RESPIRATORY: HAVE YOU BEEN SICK IN THE PAST WEEK? NO . FEVER NO . FLU LIKE SYMPTOMS? NO . COUGH NO . INTEGUMENTARY: DO YOU HAVE ANY RASHES OR OPEN SORES? NO . ALLERGIC/IMMUNO: ARE YOU ALLERGIC TO SHELLFISH OR IV DYE? YES, SHRIMP . ANY NEW ALLERGIES? NO . PSYCHIATRIC: DO YOU HAVE THOUGHTS OF HURTING YOURSELF OR SOMEONE ELSE? NO . ARE YOU ABUSED, NEGLECTED, OR IN AN UNSAFE ENVIRONMENT? NO . ENDOCRINOLOGY: ARE YOU DIABETIC? YES . OTHER: DO YOU NEED ANY PRESCRIPTIONS? NO . IF YES, PLEASE LIST: ____ . ANY NEW PROBLEMS WITH YOUR MEDICATIONS? NO . WHEN DID YOU LAST EAT? 02/26 6PM . WHEN DID YOU LAST DRINK? 02/27 830AM . WHAT DID YOU LAST DRINK? YVROSE VALERIE . NAME OF PERSON DRIVING YOU HOME? SPOUSE SHIVAM . DO YOU HAVE ANY OTHER QUESTIONS OR CONCERNS NO . REVIEWED BY: PROVIDER: . VITAL SIGNS WT 212 LBS, HT 65", BMI 35.27 INDEX, BP 163/77 MM HG, HR 63 /MIN, RR 16 /MIN, TEMP 97.3 F, OXYGEN SAT % 95%, NA INITIALS SC 11:46, REVIEWED BY: NL. ASSESSMENTS SPONDYLOSIS WITHOUT MYELOPATHY OR RADICULOPATHY, LUMBAR REGION - M47.816 (PRIMARY) SPONDYLOSIS WITHOUT MYELOPATHY OR RADICULOPATHY, LUMBOSACRAL REGION - M47.817 PROCEDURES PN RADIOFREQUENCY PRE PROCEDURE DIAGNOSES 1. LUMBAR SPONDYLOSIS. 2. LUMBOSACRAL SPONDYLOSIS POST PROCEDURE DIAGNOSES 1. LUMBAR SPONDYLOSIS. 2. LUMBOSACRAL SPONDYLOSIS PROCEDURE LEFT L4-L5 AND L5-S1 LUMBAR FACET RADIOFREQUENCY SURGEON DR. ARNOLD QUINONES EDGE BURNISHER NONE ANESTHESIA LOCAL PRE PROCEDURE REPORT THE PATIENT HAS HISTORY OF CHRONIC LOW BACK PAIN. I EVALUATE THE PATIENT AND REVIEWED THE CHART. I WENT OVER THE RISKS, ALTERNATIVES, AND BENEFITS ASSOCIATED WITH THIS PROCEDURE. THE PATIENT WOULD LIKE TO PROCEED AND GIVE CONSENT TO PERFORMED THE PROCEDURE. THE PATIENT DENIES UNEXPLAINABLE WEIGHT LOSS, FEVER, CHILLS, OR NEW CHANGES IN URINARY OR BOWEL CONTROL DESCRIPTION OF PROCEDURE THE PATIENT WAS BROUGHT TO THE PROCEDURE ROOM AND PLACED IN THE PRONE POSITION. THE LUMBOSACRAL AREA WAS CLEANED WITH CHLORAPREP SOLUTION AND DRAPED ASEPTICALLY. THE PROCEDURE WAS DONE UNDER STERILE CONDITIONS. I CHECKED LATERALITY AND THE LEVEL WHERE THE PROCEDURE WAS GOING TO BE PERFORMED WITH THE PATIENT AND THE SUPPORTING STAFF AT THE MOMENT OF THE TIME OUT IN THE PROCEDURE ROOM. UNDER FLUOROSCOPIC GUIDANCE, TARGETS WERE SELECTED AT THE INTERSECTION OF THE LEFT TRANSVERSE PROCESS OF L4, L5 AND ALA OF S1 WITH ITS RESPECTIVE SUPERIOR ARTICULAR PROCESS. LIDOCAINE WAS USED TO NUMB THE SKIN AND THE SUBCUTANEOUS TISSUE BELOW IT. RADIOFREQUENCY NEEDLES 22-GAUGE 15 CM LONG WITH 10 MM ACTIVE CURVE TIP WERE ADVANCED UNDER FLUOROSCOPIC GUIDANCE AND FOLLOWING PATIENT FEEDBACK UNTIL THE TARGET AREA WAS REACHED. POSITION OF THE NEEDLES WAS VERIFIED WITH AP AND LATERAL VIEWS. AFTER PROPER POSITION OF THE NEEDLE WAS ACHIEVED, WE WORKED WITH THE LEFT SELECTED MEDIAN BRANCHES OF L3, L4 AND THE DORSAL RAMI OF L5. WE MEASURED THE CORRESPONDING IMPEDANCES, SENSORY STIMULATION AND MOTOR RESPONSES INDICATED IN THE RADIOFREQUENCY WORKSHEET. POSITION OF THE NEEDLES WAS VERIFIED AGAIN WITH AP AND LATERAL VIEWS. LIDOCAINE 1%, 2 ML, WAS INJECTED AT EACH LEVEL. RADIOFREQUENCY WAS DONE AT EACH LEVEL AT 80 DEGREES FOR 90 SECONDS. AFTER RADIOFREQUENCY WAS DONE, THE PATIENT RECEIVED BUPIVACAINE 0.125% 1 CC WITH KENALOG 5 MG AT EACH SITE. THERE WAS NO EVIDENCE OF BLOOD, PARESTHESIA OR CEREBROSPINAL FLUID DURING THE PROCEDURE. THE PATIENT WAS SENT TO THE RECOVERY ROOM. THE PATIENT WAS MOVING THE EXTREMITIES AND DOING WELL. THERE WAS NO COMPLICATION DURING THE PROCEDURE. FLUOROSCOPY TIME WAS 50 SECONDS POST PROCEDURE NOTE THE PATIENT WILL BE SEEN IN A FOLLOW UP IN THE NEXT FEW WEEKS. INSTRUCTIONS WERE GIVEN, QUESTIONS WERE ANSWERED, AND THE PATIENT EXPRESSED UNDERSTANDING AND AGREES WITH THE PLAN. I, RACHEL REDD, DOCUMENTED THE ABOVE INFORMATION ACTING A SCRIBE FOR DR. QUINONES. I HAVE REVIEWED THE ABOVE DOCUMENT, WRITTEN BY RACHEL REDD SCRIBE AND I VERIFY THAT IT IS [facility]URATE DIAGNOSTIC IMAGING [facility] FACET BLOCK ([id number])[id number] PROCEDURE CODES 50531 DESTROY LUMB/SAC FACET JNT 90998 DESTROY L/S FACET JNT ADDL 6045F RADXPS IN END [id number] PXD DISPOSITION & COMMUNICATION FOLLOW UP 3 WEEKS ELECTRONICALLY SIGNED BY ARNOLD QUINONES MD ON 02/28/2017 AT 08:08 PM EDT DISCLAIMER : THIS IS A VISIT SUMMARY EXTRACTED FROM THE [employer] CHART. IT IS NOT A COPY OF THE [employer]49 PROGRESS NOTE. MTDD
== END | disposition home or self-care (01) ==
LOC: M PAIN 11:40
PROVIDERS: ATTEND Anesthesiology
DX: G89.29 Other chronic pain (principal); M47.816 Spondylosis without myelopathy or radiculopathy, lumbar region; M47.817 Spondylosis without myelopathy or radiculopathy, lumbosacral region; K21.9 Gastro-esophageal reflux disease without esophagitis; I11.9 Hypertensive heart disease without heart failure; E78.00 Pure hypercholesterolemia, unspecified; E03.9 Hypothyroidism, unspecified; E11.9 Type 2 diabetes mellitus without complications; M19.90 Unspecified osteoarthritis, unspecified site; J45.909 Unspecified asthma, uncomplicated; K58.0 Irritable bowel syndrome with diarrhea; I51.7 Cardiomegaly; Z79.899 Other long term (current) drug therapy; Z79.84 Long term (current) use of oral hypoglycemic drugs; Z91.013 Allergy to seafood; Z91.018 Allergy to other foods; Z88.0 Allergy status to penicillin; Z88.5 Allergy status to narcotic agent; Z91.030 Bee allergy status
CPT/HCPCS: 64635; 64636; J3301; Q9967

== ENCOUNTER → 2017-03-15 | Outpatient (CLI) | payer MEDICARE, OTHER ==
[~2017-03-15] MED LIST changes: -BUPIVACAINE HCL 0.25% 30 ML VIAL As Ordered ONE; -ISOVUE-M 300 61% 15ML VIAL (Q9967) As Ordered ONE; -LIDOCAINE 1% SDV INJ 30 ML VIAL As Ordered ONE; -TRIAMCINOLONE ACETONIDE SUSP 40 MG/ML VIAL (J3301) As Ordered ONE
--- NOTE | 2017-03-16 00:27 | ECWPNPC ---
PATIENT NAME: KUSHAL GARNETT : 1950 GENDER: FEMALE VISIT DATE: 03/15/2017 DISCHARGE DATE: 03/15/17 1236 VISIT LOCKED DATE TIME: PHYSICIAN: ALEKSANDER HIRSCH RESOURCE: ALEKSANDER HIRSCH REASON FOR APPOINTMENT 1. POST RF HISTORY OF PRESENT ILLNESS HISTORY OF PRESENT ILLNESS: PAIN THE PATIENT DESCRIBES THE PAIN... FALL RISK SCREENING: SCREENING :NO FALLS IN THE PAST YEAR TODAY'S VISIT: NOTES: S/P LEFT RADIOFREQUENCY DENERVATION COMPLETED ON 02/27/17 AT L4-5, L5-S1 LUMBAR FACETS WITH 100% REDUCTION IN BACK PAIN. RATES BACK PAIN TODAY 0/10. NOW IS HAVING LEFT BUTTUCK AREA PAIN AFTER OVER STRETCHING THE AREA. IS SEEING PHYSICAL THERAPY. THEY FEEL IT IS PIRIFORMIS. SHE IS CURRENTLY USING A WALKER FOR SUPPORT AND BALANCE. . CURRENT MEDICATIONS UNKNOWN METFORMIN HCL 500 MG TABLET 1 TABLET WITH MEALS ORALLY 3 TIMES A DAY UNKNOWN BENZONATATE 100 MG CAPSULE 2 CAPSULES ORALLY THREE TIMES A DAY PRN UNKNOWN NASONEX 50 MCG/ACT SUSPENSION 2 SPRAYS IN EACH NOSTRIL NASALLY ONCE A DAY NEEDED UNKNOWN CLONIDINE HCL 0.1 MG TABLET 1 TABLET ORALLY THREE TIMES A DAY UNKNOWN AMLODIPINE BESYLATE 5 MG TABLET 1 TABLET ORALLY ONCE A DAY UNKNOWN HYDROCHLOROTHIAZIDE 25 MG TABLET 1 TABLET ORALLY ONCE A DAY UNKNOWN NEXIUM 40 MG CAPSULE DELAYED RELEASE 1 CAPSULE ORALLY ONCE A DAY UNKNOWN CYMBALTA 60 MG CAPSULE DELAYED RELEASE PARTICLES 1 CAPSULE ORALLY ONCE A DAY UNKNOWN LEVOTHYROXINE SODIUM 88 MCG TABLET 1 TABLET ON AN EMPTY STOMACH IN THE MORNING ORALLY ONCE A DAY UNKNOWN TRILIPIX 135 MG CAPSULE DELAYED RELEASE 1 CAPSULE ORALLY ONCE A DAY UNKNOWN BYSTOLIC 10 MG TABLET 1 TABLET ORALLY ONCE A DAY UNKNOWN CELEBREX 200 MG CAPSULE 1 CAPSULE ORALLY ONCE A DAY UNKNOWN OXYBUTYNIN CHLORIDE ER 10 MG TABLET EXTENDED RELEASE 24 HOUR 1 TABLET ORALLY ONCE A DAY UNKNOWN DIOVAN 320 MG TABLET 1 TABLET ORALLY ONCE A DAY UNKNOWN LYRICA 50 MG CAPSULE 1 CAPSULE ORALLY THREE TIMES DAILY UNKNOWN HYDROCODONE-ACETAMINOPHEN 7.5-300 MG TABLET 1 TABLET NEEDED ORALLY TWICE DAILY UNKNOWN ZYRTEC ALLERGY 10 MG TABLET 1 TABLET ORALLY ONCE A DAY NEEDED UNKNOWN REQUIP 1 MG TABLET ORALLY ONE TABLET AT BEDTIME NEEDED UNKNOWN BONIVA 150 MG TABLET 1 TABLET ORALLY MONTHLY UNKNOWN JANUVIA 100 MG TABLET 1 TABLET ORALLY ONCE A DAY UNKNOWN VITAMIN D 1000 UNIT TABLET 1 TABLET ORALLY ONCE A DAY MEDICATION LIST REVIEWED AND RECONCILED WITH THE PATIENT PAST MEDICAL HISTORY ESOPHAGEAL REFLUX ENLARGED HEART HYPERTENSION HYPERCHOLESTEROLEMIA HYPOTHYROIDISM DIABETES MALLITUS ARTHRITIS ASTHMA IBS-D ALLERGIES PENICILLIN (FOR ALLERGIES USE ONLY): HIVES, SWELLING: ALLERGY SHELLFISH: SOMETIMES RASH AND ITCHING DARVOCET-N 100: RASH: ALLERGY STRAWBERRIES: SOMETIMES RASH AND ITCHING BEE STINGS: SWELLING AND REDNESS: ALLERGY TEQUIN - DUE TO PENICILLIN ALLERGY REVIEW OF SYSTEMS CONSTITUTIONAL: ANY CHANGE IN YOUR MEDICAL CONDITION? NO . CHILLS NO . FEVER NO . INFECTION: DO YOU HAVE NEW INFECTIONS? NO . DO YOU HAVE HISTORY OF MRSA? NO . MUSCULOSKELETAL: ANY NEW PATTERNS OF PAIN OR NUMBNESS? NO . GASTROENTEROLOGY: ANY NEW CHANGE IN BOWEL CONTROL? NO . GENITOURINARY: ANY NEW CHANGE IN BLADDER CONTROL? NO . IS THERE A CHANCE YOU COULD BE ? NO . HEMATOLOGY/LYMPH: DO YOU TAKE ANY BLOOD THINNERS? (FOR EXAMPLE- COUMADIN, PLAVIX, AGGRENOX, PLATEL, PRADAXA, OR XARELTO) NO . WHEN WAS YOUR LAST DOSE? DATE: TIME: . NEUROLOGY: HAVE YOU FALLEN IN THE PAST 6 MONTHS? NO . ANY NEW EXTREMITY NUMBNESS OR WEAKNESS? NO . CARDIOLOGY: DO YOU HAVE A PACEMAKER OR DEFIBRILLATOR? NO . RESPIRATORY: HAVE YOU BEEN SICK IN THE PAST WEEK? NO . FEVER NO . FLU LIKE SYMPTOMS? NO . COUGH NO . INTEGUMENTARY: DO YOU HAVE ANY RASHES OR OPEN SORES? NO . ALLERGIC/IMMUNO: ARE YOU ALLERGIC TO SHELLFISH OR IV DYE? YES, SHELLFISH . ANY NEW ALLERGIES? NO . PSYCHIATRIC: DO YOU HAVE THOUGHTS OF HURTING YOURSELF OR SOMEONE ELSE? NO . ARE YOU ABUSED, NEGLECTED, OR IN AN UNSAFE ENVIRONMENT? NO . ENDOCRINOLOGY: ARE YOU DIABETIC? YES . OTHER: DO YOU NEED ANY PRESCRIPTIONS? NO . IF YES, PLEASE LIST: ____ . ANY NEW PROBLEMS WITH YOUR MEDICATIONS? NO . WHEN DID YOU LAST EAT? ____ . WHEN DID YOU LAST DRINK? ____ . WHAT DID YOU LAST DRINK? ____ . NAME OF PERSON DRIVING YOU HOME? ____ . DO YOU HAVE ANY OTHER QUESTIONS OR CONCERNS NO . REVIEWED BY: PROVIDER: ALEKSANDER THOMAS . VITAL SIGNS WT 212 LBS, HT 65", BMI 35.27 INDEX, BP 149/87 MM HG, HR 63 /MIN, RR 16 /MIN, TEMP 97.7 F, OXYGEN SAT % 95%, NA INITIALS SC 12:15, REVIEWED BY: NL. EXAMINATION GENERAL EXAMINATION: PSYCHORIENTED X 3 , ALERT , APPROPRIATE MOOD AND AFFECT , GOOD EYE CONTACT. LUNGS:CLEAR TO AUSCULTATION BILATERALLY, NO WHEEZES, RALES OR RHONCHI. HEART:HEART RATE REGULAR. MUSCULOSKELETAL:MUSCLE STRENGTH TESTING 5/5 BILATERAL LOWER EXTTREMITIES. MILD TENDERNESS OVER LUMBAR SPINAOUS PROCESSES AND ACROSS LUMBOSACRAL AXIS. UNABLE TO FIND AND FOCAL TENDDERNESS OVER LEFT PIRIFORMIS OR OVER LUMBAR FACETS OR PARAVERTEBRAL MUSCLES. SLOW TO RISE TO STANDING POSITION. WALKER USED FOR BALANCE.. NEUROLOGIC EXAM:DECREASED SENSATION IN STOCKINGGLOVE FASHION TO MID CALF BILATERALLY. DTR'S TRACE/ABSENTIN BILATERAL LOWER EXTREMITIES. . ASSESSMENTS SPONDYLOSIS WITHOUT MYELOPATHY OR RADICULOPATHY, LUMBAR REGION - M47.816 (PRIMARY) SPONDYLOSIS WITHOUT MYELOPATHY OR RADICULOPATHY, LUMBOSACRAL REGION - M47.817 TREATMENT SPONDYLOSIS WITHOUT MYELOPATHY OR RADICULOPATHY, LUMBAR REGION START MAGNESIUM OXIDE CAPSULE, 400 MG, 1 CAPSULE NEEDED, ORALLY, BEFORE BEDTIME, 30 DAY(S), 30, REFILLS 0 NOTES: COMPLETE PHYSICAL THERAPY. WILL CONSIDER PIRIFORMIS INJECTION IF AREA NOT BETTER. PROCEDURE CODES FA211 ESTABILISHED PATIENT [facility] FACILITY CHARGE G8730 PAIN ASSESS POS TOOL F/U PLAN DOC G8427 DOC MEDS VERIFIED W/PT OR RE DISPOSITION & COMMUNICATION FOLLOW UP 2-3 MONTHS (REASON: BACK PAIN/PIRIFOFRMIS) ELECTRONICALLY SIGNED BY JARED APONTE ON 03/15/2017 AT 04:36 PM EDT DISCLAIMER : THIS IS A VISIT SUMMARY EXTRACTED FROM THE [employer] CHART. IT IS NOT A COPY OF THE [employer] PROGRESS NOTE. MIRANDA
== END | disposition home or self-care (01) ==
LOC: M PAIN 11:20
PROVIDERS: ATTEND Nurse Practitioner Family
DX: G89.29 Other chronic pain (principal); M47.816 Spondylosis without myelopathy or radiculopathy, lumbar region; M47.817 Spondylosis without myelopathy or radiculopathy, lumbosacral region; K21.9 Gastro-esophageal reflux disease without esophagitis; I11.9 Hypertensive heart disease without heart failure; E78.00 Pure hypercholesterolemia, unspecified; E03.9 Hypothyroidism, unspecified; E11.9 Type 2 diabetes mellitus without complications; M19.90 Unspecified osteoarthritis, unspecified site; J45.909 Unspecified asthma, uncomplicated; K58.9 Irritable bowel syndrome, unspecified; Z79.899 Other long term (current) drug therapy; Z79.84 Long term (current) use of oral hypoglycemic drugs; Z88.0 Allergy status to penicillin; Z88.5 Allergy status to narcotic agent; Z91.013 Allergy to seafood; Z91.018 Allergy to other foods; Z91.030 Bee allergy status

== ENCOUNTER 2017-04-04 11:45 | Outpatient (RCR) | payer MEDICARE, OTHER | END 2017-04-05 | LOC: M PT 11:45 | PROVIDERS: ATTEND Physician Assistant | DX: Z51.89 Encounter for other specified aftercare (principal); M54.32 Sciatica, left side | CPT/HCPCS: 97110; 97140; 97161; G8978; G8979 ==

== ENCOUNTER → 2017-04-10 | Outpatient (CLI) | payer MEDICARE, OTHER ==
--- NOTE | 2017-05-08 01:20 | ECWPNPC ---
PATIENT NAME: KUSHAL GARNETT : 1950 GENDER: FEMALE VISIT DATE: 04/10/2017 DISCHARGE DATE: 04/10/17 1159 VISIT LOCKED DATE TIME: PHYSICIAN: ALEKSANDER HIRSCH RESOURCE: ALEKSANDER HIRSCH HISTORY OF PRESENT ILLNESS HISTORY OF PRESENT ILLNESS: PAIN THE PATIENT DESCRIBES THE PAIN... FALL RISK SCREENING: SCREENING :NO FALLS IN THE PAST YEAR TODAY'S VISIT: NOTES: RATES PAIN TODAY 7/10. DESCRIBES PAIN INTERMITTANT, SHARP, STABBING, ACHING, SHOOTING, TENDER AND THROBBING. NOTES PAIN IS CENTERED IN LEFT HIP/SACRUM WITH RADIATION DOWN LEFT LEG TO CALF. HAS ATTENTED THERAPY - FELT [facility] THERAPY BUT AFTERWARD HAD PAIN. WORST PAIN HAPPENED IN 8TH VISIT WHEN HE PULLED THE LEG .. CURRENT MEDICATIONS TAKING MAGNESIUM OXIDE 400 MG CAPSULE 1 CAPSULE NEEDED ORALLY BEFORE BEDTIME TAKING METFORMIN HCL 500 MG TABLET 1 TABLET WITH MEALS ORALLY 3 TIMES A DAY TAKING CLONIDINE HCL 0.1 MG TABLET 1 TABLET ORALLY THREE TIMES A DAY TAKING AMLODIPINE BESYLATE 5 MG TABLET 1 TABLET ORALLY ONCE A DAY TAKING HYDROCHLOROTHIAZIDE 25 MG TABLET 1 TABLET ORALLY ONCE A DAY TAKING NEXIUM 40 MG CAPSULE DELAYED RELEASE 1 CAPSULE ORALLY ONCE A DAY TAKING LEVOTHYROXINE SODIUM 88 MCG TABLET 1 TABLET ON AN EMPTY STOMACH IN THE MORNING ORALLY ONCE A DAY TAKING TRILIPIX 135 MG CAPSULE DELAYED RELEASE 1 CAPSULE ORALLY ONCE A DAY TAKING BYSTOLIC 10 MG TABLET 1 TABLET ORALLY ONCE A DAY TAKING OXYBUTYNIN CHLORIDE ER 10 MG TABLET EXTENDED RELEASE 24 HOUR 1 TABLET ORALLY ONCE A DAY TAKING DIOVAN 320 MG TABLET 1 TABLET ORALLY ONCE A DAY TAKING LYRICA 100 MG CAPSULE 1 CAPSULE ORALLY THREE TIMES DAILY TAKING HYDROCODONE-ACETAMINOPHEN 7.5-300 MG TABLET 1 TABLET NEEDED ORALLY TWICE DAILY TAKING ZYRTEC ALLERGY 10 MG TABLET 1 TABLET ORALLY ONCE A DAY NEEDED TAKING REQUIP 1 MG TABLET ORALLY ONE TABLET AT BEDTIME NEEDED TAKING BONIVA 150 MG TABLET 1 TABLET ORALLY MONTHLY TAKING JANUVIA 100 MG TABLET 1 TABLET ORALLY ONCE A DAY TAKING VITAMIN D 1000 UNIT TABLET 1 TABLET ORALLY ONCE A DAY TAKING ALEVE 220 MG TABLET 1 TABLET NEEDED ORALLY EVERY 12 HRS NOT-TAKING BENZONATATE 100 MG CAPSULE 2 CAPSULES ORALLY THREE TIMES A DAY PRN NOT-TAKING NASONEX 50 MCG/ACT SUSPENSION 2 SPRAYS IN EACH NOSTRIL NASALLY ONCE A DAY NEEDED DISCONTINUED CYMBALTA 60 MG CAPSULE DELAYED RELEASE PARTICLES 1 CAPSULE ORALLY ONCE A DAY DISCONTINUED CELEBREX 200 MG CAPSULE 1 CAPSULE ORALLY ONCE A DAY MEDICATION LIST REVIEWED AND RECONCILED WITH THE PATIENT PAST MEDICAL HISTORY ESOPHAGEAL REFLUX ENLARGED HEART HYPERTENSION HYPERCHOLESTEROLEMIA HYPOTHYROIDISM DIABETES MALLITUS ARTHRITIS ASTHMA IBS-D ALLERGIES PENICILLIN (FOR ALLERGIES USE ONLY): HIVES, SWELLING: ALLERGY SHELLFISH: SOMETIMES RASH AND ITCHING DARVOCET-N 100: RASH: ALLERGY STRAWBERRIES: SOMETIMES RASH AND ITCHING BEE STINGS: SWELLING AND REDNESS: ALLERGY TEQUIN - DUE TO PENICILLIN ALLERGY REVIEW OF SYSTEMS REVIEWED BY: PROVIDER: ALEKSANDER THOMAS . CONSTITUTIONAL: ANY CHANGE IN YOUR MEDICAL CONDITION? NO . CHILLS NO . FEVER NO . INFECTION: DO YOU HAVE NEW INFECTIONS? NO . DO YOU HAVE HISTORY OF MRSA? NO . MUSCULOSKELETAL: ANY NEW PATTERNS OF PAIN OR NUMBNESS? NO . GASTROENTEROLOGY: ANY NEW CHANGE IN BOWEL CONTROL? NO . GENITOURINARY: ANY NEW CHANGE IN BLADDER CONTROL? NO . IS THERE A CHANCE YOU COULD BE ? NO . HEMATOLOGY/LYMPH: DO YOU TAKE ANY BLOOD THINNERS? (FOR EXAMPLE- COUMADIN, PLAVIX, AGGRENOX, PLATEL, PRADAXA, OR XARELTO) NO . WHEN WAS YOUR LAST DOSE? DATE: TIME: . NEUROLOGY: HAVE YOU FALLEN IN THE PAST 6 MONTHS? NO . ANY NEW EXTREMITY NUMBNESS OR WEAKNESS? NO . VERTIGO WITH MOVEMENT OF HEAD . CARDIOLOGY: DO YOU HAVE A PACEMAKER OR DEFIBRILLATOR? NO . RESPIRATORY: HAVE YOU BEEN SICK IN THE PAST WEEK? NO . FEVER NO . FLU LIKE SYMPTOMS? NO . COUGH NO . INTEGUMENTARY: DO YOU HAVE ANY RASHES OR OPEN SORES? NO . ALLERGIC/IMMUNO: ARE YOU ALLERGIC TO SHELLFISH OR IV DYE? YES, SHELLFISH . ANY NEW ALLERGIES? NO . PSYCHIATRIC: DO YOU HAVE THOUGHTS OF HURTING YOURSELF OR SOMEONE ELSE? NO . ARE YOU ABUSED, NEGLECTED, OR IN AN UNSAFE ENVIRONMENT? NO . ENDOCRINOLOGY: ARE YOU DIABETIC? YES - IMPROVED A1C WITH JANUVIA . OTHER: DO YOU NEED ANY PRESCRIPTIONS? NO . IF YES, PLEASE LIST: ____ . ANY NEW PROBLEMS WITH YOUR MEDICATIONS? NO . WHEN DID YOU LAST EAT? ____ . WHEN DID YOU LAST DRINK? ____ . WHAT DID YOU LAST DRINK? ____ . NAME OF PERSON DRIVING YOU HOME? ____ . DO YOU HAVE ANY OTHER QUESTIONS OR CONCERNS YES, PERIFORMIS IS THE PROBLEM NOW, SO NEEDS SOMETHING MOREFOR PAIN PER MY PHYSCIAN RADIO FREQUENCY HELPED BACK PAIN. . VITAL SIGNS WT 205 LBS, HT 65", BMI 34.11 INDEX, BP 160/90 MM HG, HR 69 /MIN, RR 16 /MIN, TEMP 98.6 F, OXYGEN SAT % 98%, NA INITIALS SC 10:48, REVIEWED BY: JOI. EXAMINATION GENERAL EXAMINATION: PSYCHALERT , ORIENTED X 3 , APPROPRIATE MOOD AND AFFECT . LUNGS:CLEAR TO AUSCULTATION BILATERALLY. HEART:HEART RATE REGULAR. MUSCULOSKELETAL:EXQUISITE TENDERNESS OVER LEFT TROCANTER, SACRUM AND LEFT LATERAL THIGH. SKIN:SCALY ERYTHEMATOUS PATCHES LEFT ELBOW. NO SKIN LESIONS OVER LEFT LOW BACK AND HIP AREA. ASSESSMENTS MYALGIA - M79.1 (PRIMARY) LEFT HIP PAIN - M25.552 TREATMENT MYALGIA START BACLOFEN TABLET, 10 MG, 1 TABLET WITH FOOD OR MILK, ORALLY, BID ONE AT SUPPER AND ONE AT BED, 30 DAY(S), REFILLS 1 [facility] MRI HIP WITHOUT [id number],[id number] M 04/10/2017 11:32:25 AM > LEFT HIP - PAIN, LOSS OF STRENGTH, LOSS OF ROM TRIGGER POINT 3 + AREASALEKSANDER HIRSCH 04/10/2017 11:31:37 AM > LEFT SACRUM, HIP NOTES: STOP MUSCLE RELAXER TIZANIDINECHECK BLOOD SUGAR AND HOLD DIABETES MEDS THE MORNING OF PROCEDURE.WALK AND STRETCH EVERY DAY. PROCEDURE CODES FA211 ESTABILISHED PATIENT [facility] FACILITY CHARGE G8730 PAIN ASSESS POS TOOL F/U PLAN DOC G8427 DOC MEDS VERIFIED W/PT OR RE DISPOSITION & COMMUNICATION FOLLOW UP AFTER INJECTION (REASON: CHECK AUTH FOR MRI LE HIP AND TRIGGER POINTS LEFT SACRUM, BUTTUCK AND LOW BACK) ELECTRONICALLY SIGNED BY JARED APONTE ON 05/07/2017 AT 08:45 AM EDT DISCLAIMER : THIS IS A VISIT SUMMARY EXTRACTED FROM THE [employer] CHART. IT IS NOT A COPY OF THE [employer] PROGRESS NOTE. MIRANDA
== END | disposition home or self-care (01) ==
LOC: M PAIN 11:00
PROVIDERS: ATTEND Nurse Practitioner Family
DX: G89.29 Other chronic pain (principal); M79.1 Myalgia; M25.552 Pain in left hip; K21.9 Gastro-esophageal reflux disease without esophagitis; I11.9 Hypertensive heart disease without heart failure; E78.00 Pure hypercholesterolemia, unspecified; E03.9 Hypothyroidism, unspecified; E11.9 Type 2 diabetes mellitus without complications; M19.90 Unspecified osteoarthritis, unspecified site; J45.909 Unspecified asthma, uncomplicated; K58.0 Irritable bowel syndrome with diarrhea; Z79.899 Other long term (current) drug therapy; Z79.84 Long term (current) use of oral hypoglycemic drugs; Z88.0 Allergy status to penicillin; Z88.5 Allergy status to narcotic agent; Z91.013 Allergy to seafood; Z91.018 Allergy to other foods; Z91.030 Bee allergy status

== ENCOUNTER → 2017-04-23 | Outpatient (CLI) | payer MEDICARE, OTHER ==
[~2017-04-23] MED LIST changes: +BUPIVACAINE HCL 0.25% 10 ML VIAL As Ordered ONE; +BUPIVACAINE HCL 0.25% 30 ML VIAL As Ordered ONE; +TRIAMCINOLONE ACETONIDE SUSP 40 MG/ML VIAL (J3301) As Ordered ONE
--- NOTE | 2017-05-05 23:37 | ECWPNPC ---
PATIENT NAME: KUSHAL GARNETT : 1950 GENDER: FEMALE VISIT DATE: 04/23/2017 DISCHARGE DATE: 04/23/17 1034 VISIT LOCKED DATE TIME: PHYSICIAN: ARNOLD QUINONES RESOURCE: ARNOLD QUINONES REASON FOR APPOINTMENT 1. TPI HISTORY OF PRESENT ILLNESS HISTORY OF PRESENT ILLNESS: PAIN THE PATIENT DESCRIBES THE PAIN... FALL RISK SCREENING: SCREENING :NO FALLS IN THE PAST YEAR CURRENT MEDICATIONS TAKING MAGNESIUM OXIDE 400 MG CAPSULE 1 CAPSULE NEEDED ORALLY BEFORE BEDTIME, NOTES: 04-22-17899 TAKING METFORMIN HCL 500 MG TABLET 1 TABLET WITH MEALS ORALLY 3 TIMES A DAY, NOTES: 04-22-172099 TAKING CLONIDINE HCL 0.1 MG TABLET 1 TABLET ORALLY THREE TIMES A DAY, NOTES: 04-23-17599 TAKING AMLODIPINE BESYLATE 5 MG TABLET 1 TABLET ORALLY ONCE A DAY, NOTES: 04-22-17 TAKING HYDROCHLOROTHIAZIDE 25 MG TABLET 1 TABLET ORALLY ONCE A DAY, NOTES: 04-23-17 TAKING NEXIUM 40 MG CAPSULE DELAYED RELEASE 1 CAPSULE ORALLY ONCE A DAY, NOTES: 04-23-17599 TAKING LEVOTHYROXINE SODIUM 88 MCG TABLET 1 TABLET ON AN EMPTY STOMACH IN THE MORNING ORALLY ONCE A DAY, NOTES: 04-23-17599 TAKING TRILIPIX 135 MG CAPSULE DELAYED RELEASE 1 CAPSULE ORALLY ONCE A DAY, NOTES: 04-23-17599 TAKING BYSTOLIC 10 MG TABLET 1 TABLET ORALLY ONCE A DAY, NOTES: 04-23-17599 TAKING OXYBUTYNIN CHLORIDE ER 10 MG TABLET EXTENDED RELEASE 24 HOUR 1 TABLET ORALLY ONCE A DAY, NOTES: 04-23-17599 TAKING DIOVAN 320 MG TABLET 1 TABLET ORALLY ONCE A DAY, NOTES: 04-23-17599 TAKING LYRICA 100 MG CAPSULE 1 CAPSULE ORALLY THREE TIMES DAILY, NOTES: 04-23-17599 TAKING HYDROCODONE-ACETAMINOPHEN 7.5-300 MG TABLET 1 TABLET NEEDED ORALLY TWICE DAILY, NOTES: 04-22-172099 TAKING ZYRTEC ALLERGY 10 MG TABLET 1 TABLET ORALLY ONCE A DAY NEEDED, NOTES: 04-17-172099 TAKING REQUIP 1 MG TABLET ORALLY ONE TABLET AT BEDTIME NEEDED, NOTES: 04-06-17799 TAKING BONIVA 150 MG TABLET 1 TABLET ORALLY MONTHLY, NOTES: APRIL 06 2017 TAKING JANUVIA 100 MG TABLET 1 TABLET ORALLY ONCE A DAY, NOTES: 04-22-17 2100 TAKING VITAMIN D 1000 UNIT TABLET 1 TABLET ORALLY ONCE A DAY, NOTES: 04-22-17 0800 TAKING ALEVE 220 MG TABLET 1 TABLET NEEDED ORALLY EVERY 12 HRS, NOTES: 04-22-17 0800 TAKING BACLOFEN 10 MG TABLET 1 TABLET WITH FOOD OR MILK ORALLY BID ONE AT SUPPER AND ONE AT BED, NOTES: 04-22-17 21`00 NOT-TAKING BENZONATATE 100 MG CAPSULE 2 CAPSULES ORALLY THREE TIMES A DAY PRN NOT-TAKING NASONEX 50 MCG/ACT SUSPENSION 2 SPRAYS IN EACH NOSTRIL NASALLY ONCE A DAY NEEDED MEDICATION LIST REVIEWED AND RECONCILED WITH THE PATIENT PAST MEDICAL HISTORY ESOPHAGEAL REFLUX ENLARGED HEART HYPERTENSION HYPERCHOLESTEROLEMIA HYPOTHYROIDISM DIABETES MALLITUS ARTHRITIS ASTHMA IBS-D ALLERGIES PENICILLIN (FOR ALLERGIES USE ONLY): HIVES, SWELLING: ALLERGY SHELLFISH: SOMETIMES RASH AND ITCHING DARVOCET-N 100: RASH: ALLERGY STRAWBERRIES: SOMETIMES RASH AND ITCHING BEE STINGS: SWELLING AND REDNESS: ALLERGY TEQUIN - DUE TO PENICILLIN ALLERGY SURGICAL HISTORY HYSTERECTOMY 1977 CHOLECYSTECTOMY RIGHT SHOULDER CARPAL TUNNEL RELEASE RIGHT CARPAL TUNNEL RELEASE LEFT KNEE REPLACEMENT 2013 BLADDER LIFT 2012 LENSES KNEE REPLACEMENT 2014 HOSPITALIZATION/MAJOR DIAGNOSTIC PROCEDURE SURGERIES REVIEW OF SYSTEMS REVIEWED BY: PROVIDER: . CONSTITUTIONAL: ANY CHANGE IN YOUR MEDICAL CONDITION? NO . CHILLS NO . FEVER NO . INFECTION: DO YOU HAVE NEW INFECTIONS? NO . DO YOU HAVE HISTORY OF MRSA? NO . MUSCULOSKELETAL: ANY NEW PATTERNS OF PAIN OR NUMBNESS? NO . GASTROENTEROLOGY: ANY NEW CHANGE IN BOWEL CONTROL? NO . GENITOURINARY: ANY NEW CHANGE IN BLADDER CONTROL? NO . IS THERE A CHANCE YOU COULD BE ? NO . HEMATOLOGY/LYMPH: DO YOU TAKE ANY BLOOD THINNERS? (FOR EXAMPLE- COUMADIN, PLAVIX, AGGRENOX, PLATEL, PRADAXA, OR XARELTO) NO . WHEN WAS YOUR LAST DOSE? DATE: TIME: . NEUROLOGY: HAVE YOU FALLEN IN THE PAST 6 MONTHS? NO . ANY NEW EXTREMITY NUMBNESS OR WEAKNESS? NO . CARDIOLOGY: DO YOU HAVE A PACEMAKER OR DEFIBRILLATOR? NO . RESPIRATORY: HAVE YOU BEEN SICK IN THE PAST WEEK? NO . FEVER NO . FLU LIKE SYMPTOMS? NO . COUGH NO . INTEGUMENTARY: DO YOU HAVE ANY RASHES OR OPEN SORES? NO . ALLERGIC/IMMUNO: ARE YOU ALLERGIC TO SHELLFISH OR IV DYE? NO . ANY NEW ALLERGIES? NO . PSYCHIATRIC: DO YOU HAVE THOUGHTS OF HURTING YOURSELF OR SOMEONE ELSE? NO . ARE YOU ABUSED, NEGLECTED, OR IN AN UNSAFE ENVIRONMENT? NO . ENDOCRINOLOGY: ARE YOU DIABETIC? NO . OTHER: DO YOU NEED ANY PRESCRIPTIONS? NO . IF YES, PLEASE LIST: ____ . ANY NEW PROBLEMS WITH YOUR MEDICATIONS? NO . WHEN DID YOU LAST EAT? ____EVENING 04-22-17- . WHEN DID YOU LAST DRINK? ____[phone] . WHAT DID YOU LAST DRINK? ____WATER . NAME OF PERSON DRIVING YOU HOME? ____TOM GARNETT . DO YOU HAVE ANY OTHER QUESTIONS OR CONCERNS NO . VITAL SIGNS WT 205 LBS, HT 65", BMI 34.11 INDEX, BP 132/76 MM HG, HR 63 /MIN, RR 16 /MIN, TEMP 98.2 F, OXYGEN SAT % 96%, SAFE IN ENV? (Y/N) YES, NA INITIALS SC 08:38, REVIEWED BY: KG. ASSESSMENTS MYALGIA - M79.1 (PRIMARY) PROCEDURES PN TRIGGER POINT INJECTION WITH STEROIDS PRE PROCEDURE DIAGNOSIS 1. MYALGIA 2. PAIN AT LEFT LOWER BACK AREA POST PROCEDURE DIAGNOSIS 1. MYALGIA 2. PAIN AT LEFT LOWER BACK AREA PROCEDURE TRIGGER POINT INJECTION AT LEFT LOWER BACK AREA SURGEON DR. ARNOLD QUINONES SUPERVISOR SCREEN MAKING NONE ANESTHESIA LOCAL PRE PROCEDURE NOTE THE PATIENT HAS A HISTORY OF CHRONIC PAIN AT THE LEFT LOWER BACK AREA. I EVALUATE THE PATIENT AND REVIEWED THE CHART. THERE IS EVIDENCE OF BANDS OF TISSUE WITH RESTRICTION OF MOVEMENT AND PRESENCE OF TRIGGER POINT AT THE AFFECTED AREA. I WENT OVER THE RISKS, ALTERNATIVES, AND BENEFITS ASSOCIATED WITH THIS PROCEDURE. THE PATIENT WOULD LIKE TO PROCEED AND GIVE CONSENT TO PERFORMED THE PROCEDURE. THE PATIENT DENIES UNEXPLAINABLE WEIGHT LOSS, FEVER, CHILLS, OR NEW CHANGES IN URINARY OR BOWEL CONTROL DESCRIPTION OF PROCEDURE THE PATIENT WAS BROUGHT TO THE PROCEDURE ROOM AND PLACED IN THE SITTING POSITION. THE AREA WAS CLEANED WITH ALCOHOL. THE PROCEDURE WAS DONE USING [employer]SEPTIC STERILE TECHNIQUE. I CHECKED LATERALITY AND THE LEVEL WHERE THE PROCEDURE WAS GOING TO BE PERFORMED WITH THE PATIENT AND THE SUPPORTING STAFF AT THE MOMENT OF THE TIME OUT IN THE PROCEDURE ROOM. USING A 25-GAUGE NEEDLE, TRIGGER POINTS WERE INJECTED AT THE LEFT LOWER BACK AREA WITH A TOTAL OF 40 ML OF BUPIVACAINE 0.25% AND KENALOG 40 MG. THERE WAS NO EVIDENCE OF BLOOD, PARESTHESIA OR CEREBROSPINAL FLUID DURING THE PROCEDURE. THE PATIENT WAS SENT TO THE RECOVERY ROOM. THE PATIENT WAS MOVING THE EXTREMITIES AND DOING WELL. THERE WAS NO COMPLICATION DURING THE PROCEDURE POST PROCEDURE NOTE THE PATIENT WILL BE SEEN IN A FOLLOW UP IN THE NEXT FEW WEEKS. INSTRUCTIONS WERE GIVEN, QUESTIONS WERE ANSWERED, AND THE PATIENT EXPRESSED UNDERSTANDING AND AGREES WITH THE PLAN. I, EYAD CALI, DOCUMENTED THE ABOVE INFORMATION ACTING A SCRIBE FOR DR. QUINONES. I, DR. QUINONES, HAVE REVIEWED THE ABOVE DOCUMENT, SCRIBED BY EYAD CALI, AND I VERIFY THAT IT IS ACCURATE PROCEDURE CODES 82970 INJ TRIGGER POINT / MUSC DISPOSITION & COMMUNICATION FOLLOW UP 3 WEEKS ELECTRONICALLY SIGNED BY ARNOLD QUINONES MD ON 05/05/2017 AT 07:57 PM EDT DISCLAIMER : THIS IS A VISIT SUMMARY EXTRACTED FROM THE [employer] CHART. IT IS NOT A COPY OF THE [employer] PROGRESS NOTE. MIRANDA
== END ==
LOC: M PAIN 08:30
PROVIDERS: ATTEND Anesthesiology
DX: G89.29 Other chronic pain (principal); M79.1 Myalgia; M54.5 Low back pain; I10 Essential (primary) hypertension; E78.00 Pure hypercholesterolemia, unspecified; E03.9 Hypothyroidism, unspecified; E11.9 Type 2 diabetes mellitus without complications; J45.909 Unspecified asthma, uncomplicated; Z79.84 Long term (current) use of oral hypoglycemic drugs; Z79.891 Long term (current) use of opiate analgesic; Z79.899 Other long term (current) drug therapy; Z88.0 Allergy status to penicillin; Z88.5 Allergy status to narcotic agent; Z88.1 Allergy status to other antibiotic agents; Z91.013 Allergy to seafood; Z91.030 Bee allergy status
CPT/HCPCS: 20552; J3301

== ENCOUNTER 2017-04-24 10:40 | Outpatient (RCR) | payer MEDICARE, OTHER ==
[~2017-04-24 10:40] MED LIST changes: -BUPIVACAINE HCL 0.25% 10 ML VIAL As Ordered ONE; -BUPIVACAINE HCL 0.25% 30 ML VIAL As Ordered ONE; -TRIAMCINOLONE ACETONIDE SUSP 40 MG/ML VIAL (J3301) As Ordered ONE
== END 2017-05-06 ==
LOC: M PT 10:40
PROVIDERS: ATTEND Physician Assistant
DX: Z51.89 Encounter for other specified aftercare (principal); H81.10 Benign paroxysmal vertigo, unspecified ear
CPT/HCPCS: 97112; 97162; 97530; G8990; G8991

== ENCOUNTER → 2017-05-10 | Outpatient (CLI) | payer MEDICARE, OTHER ==
--- NOTE | 2017-05-31 01:35 | ECWPNPC ---
PATIENT NAME: KUSHAL GARNETT : 1950 GENDER: FEMALE VISIT DATE: 05/10/2017 DISCHARGE DATE: 05/10/1755 VISIT LOCKED DATE TIME: PHYSICIAN: ALEKSANDER HIRSCH RESOURCE: ALEKSANDER HIRSCH REASON FOR APPOINTMENT 1. POST PROCEDURE HISTORY OF PRESENT ILLNESS HISTORY OF PRESENT ILLNESS: PAIN THE PATIENT DESCRIBES THE PAIN... FALL RISK SCREENING: SCREENING :NO FALLS IN THE PAST YEAR TODAY'S VISIT: NOTES: RATES PAIN TODAY 4/10. DESCRIBES PAIN INTERMITTANT, SHARP AND STABBING. PAIN IS CENTERED LOW BACK AND LEFT SACRUM. NO RADIATION OF PAIN TO LEG.. CURRENT MEDICATIONS TAKING MAGNESIUM OXIDE 400 MG CAPSULE 1 CAPSULE NEEDED ORALLY BEFORE BEDTIME TAKING METFORMIN HCL 500 MG TABLET 1 TABLET WITH MEALS ORALLY 3 TIMES A DAY TAKING CLONIDINE HCL 0.1 MG TABLET 1 TABLET ORALLY THREE TIMES A DAY TAKING AMLODIPINE BESYLATE 5 MG TABLET 1 TABLET ORALLY ONCE A DAY TAKING HYDROCHLOROTHIAZIDE 25 MG TABLET 1 TABLET ORALLY ONCE A DAY TAKING NEXIUM 40 MG CAPSULE DELAYED RELEASE 1 CAPSULE ORALLY ONCE A DAY TAKING LEVOTHYROXINE SODIUM 88 MCG TABLET 1 TABLET ON AN EMPTY STOMACH IN THE MORNING ORALLY ONCE A DAY TAKING TRILIPIX 135 MG CAPSULE DELAYED RELEASE 1 CAPSULE ORALLY ONCE A DAY TAKING BYSTOLIC 10 MG TABLET 1 TABLET ORALLY ONCE A DAY TAKING OXYBUTYNIN CHLORIDE ER 10 MG TABLET EXTENDED RELEASE 24 HOUR 1 TABLET ORALLY ONCE A DAY TAKING DIOVAN 320 MG TABLET 1 TABLET ORALLY ONCE A DAY TAKING LYRICA 100 MG CAPSULE 1 CAPSULE ORALLY THREE TIMES DAILY TAKING HYDROCODONE-ACETAMINOPHEN 7.5-300 MG TABLET 1 TABLET NEEDED ORALLY TWICE DAILY TAKING ZYRTEC ALLERGY 10 MG TABLET 1 TABLET ORALLY ONCE A DAY NEEDED TAKING REQUIP 1 MG TABLET ORALLY ONE TABLET AT BEDTIME NEEDED TAKING BONIVA 150 MG TABLET 1 TABLET ORALLY MONTHLY TAKING JANUVIA 100 MG TABLET 1 TABLET ORALLY ONCE A DAY TAKING VITAMIN D 1000 UNIT TABLET 1 TABLET ORALLY ONCE A DAY TAKING ALEVE 220 MG TABLET 1 TABLET NEEDED ORALLY EVERY 12 HRS TAKING BACLOFEN 10 MG TABLET 1 TABLET WITH FOOD OR MILK ORALLY BID ONE AT SUPPER AND ONE AT BED NOT-TAKING BENZONATATE 100 MG CAPSULE 2 CAPSULES ORALLY THREE TIMES A DAY PRN NOT-TAKING NASONEX 50 MCG/ACT SUSPENSION 2 SPRAYS IN EACH NOSTRIL NASALLY ONCE A DAY NEEDED MEDICATION LIST REVIEWED AND RECONCILED WITH THE PATIENT PAST MEDICAL HISTORY ESOPHAGEAL REFLUX ENLARGED HEART HYPERTENSION HYPERCHOLESTEROLEMIA HYPOTHYROIDISM DIABETES MALLITUS ARTHRITIS ASTHMA IBS-D ALLERGIES PENICILLIN (FOR ALLERGIES USE ONLY): HIVES, SWELLING: ALLERGY SHELLFISH: SOMETIMES RASH AND ITCHING DARVOCET-N 100: RASH: ALLERGY STRAWBERRIES: SOMETIMES RASH AND ITCHING BEE STINGS: SWELLING AND REDNESS: ALLERGY TEQUIN - DUE TO PENICILLIN ALLERGY SOCIAL HISTORY GENERAL: TOBACCO USE ARE YOU A:CURRENT SMOKER HOW MANY CIGARETTES A DAY DO YOU SMOKE?11-20 HOW SOON AFTER YOU WAKE UP DO YOU SMOKE YOUR FIRST CIGARETTE?6-30 MIN HOW OFTEN DO YOU SMOKE CIGARETTES?EVERY DAY PATIENT COUNSELED ON THE DANGERS OF TOBACCO USE AND URGED TO QUIT:02/13/2017 ARE YOU INTERESTED IN QUITTING?NOT READY TO QUIT COUNSELED THE PATIENT ON SMOKING EFFECTS, EDUCATION [id number]/10/2017 PAIN CLINIC PFS, CLERGY, PUBLIC HEALTH REFERRALS PFS REFERRAL NEEDED?NO CLERGY REFERRAL NEEDED?NO PUBLIC HEALTH REFERRAL NEEDED?NO WAS THE PROVIDER NOTIFIED OF ANY PERTINENT INFO?NO HAS THE PATIENT BEEN EDUCATED REGARDING HIS/HER PLAN OF CARE?YES HAS THE PATIENT BEEN EDUCATED REGARDING PAIN, THE RISK FOR PAIN, THE IMPORTANCE OF EFFECTIVE PAIN MANAGEMENT, AND THE PAIN ASSESSMENT PROCESS?YES PATIENT: ____. REVIEW OF SYSTEMS REVIEWED BY: PROVIDER: ALEKSANDER THOMAS . CONSTITUTIONAL: ANY CHANGE IN YOUR MEDICAL CONDITION? NO . CHILLS NO . FEVER NO . INFECTION: DO YOU HAVE NEW INFECTIONS? NO . DO YOU HAVE HISTORY OF MRSA? NO . MUSCULOSKELETAL: ANY NEW PATTERNS OF PAIN OR NUMBNESS? NO . GASTROENTEROLOGY: ANY NEW CHANGE IN BOWEL CONTROL? NO . GENITOURINARY: ANY NEW CHANGE IN BLADDER CONTROL? NO . IS THERE A CHANCE YOU COULD BE ? NO . HEMATOLOGY/LYMPH: DO YOU TAKE ANY BLOOD THINNERS? (FOR EXAMPLE- COUMADIN, PLAVIX, AGGRENOX, PLATEL, PRADAXA, OR XARELTO) NO . WHEN WAS YOUR LAST DOSE? DATE: TIME: . NEUROLOGY: HAVE YOU FALLEN IN THE PAST 6 MONTHS? NO . ANY NEW EXTREMITY NUMBNESS OR WEAKNESS? NO . CARDIOLOGY: DO YOU HAVE A PACEMAKER OR DEFIBRILLATOR? NO . RESPIRATORY: HAVE YOU BEEN SICK IN THE PAST WEEK? NO . FEVER NO . FLU LIKE SYMPTOMS? NO . COUGH NO . INTEGUMENTARY: DO YOU HAVE ANY RASHES OR OPEN SORES? NO . ALLERGIC/IMMUNO: ARE YOU ALLERGIC TO SHELLFISH OR IV DYE? NO . ANY NEW ALLERGIES? NO . PSYCHIATRIC: DO YOU HAVE THOUGHTS OF HURTING YOURSELF OR SOMEONE ELSE? NO . ARE YOU ABUSED, NEGLECTED, OR IN AN UNSAFE ENVIRONMENT? NO . ENDOCRINOLOGY: ARE YOU DIABETIC? YES . OTHER: DO YOU NEED ANY PRESCRIPTIONS? NO . IF YES, PLEASE LIST: ____ . ANY NEW PROBLEMS WITH YOUR MEDICATIONS? NO . WHEN DID YOU LAST EAT? ____ . WHEN DID YOU LAST DRINK? ____ . WHAT DID YOU LAST DRINK? ____ . NAME OF PERSON DRIVING YOU HOME? ____ . DO YOU HAVE ANY OTHER QUESTIONS OR CONCERNS NO . VITAL SIGNS WT 202 LBS, HT 65", BMI 33.61 INDEX, BP 132/81 MM HG, HR 72 /MIN, RR 16 /MIN, TEMP 98.1 F, OXYGEN SAT % 96%, REVIEWED BY: AMOR (DONE AT 0905). EXAMINATION GENERAL EXAMINATION: PSYCHALERT , ORIENTED X 3 , APPROPRIATE MOOD AND AFFECT . LUNGS:CLEAR TO AUSCULTATION BILATERALLY. HEART:HEART RATE REGULAR. MUSCULOSKELETAL:EXQUISITE TENDERNESS OVER LEFT TROCANTER FEW TRIGGER POINTS IDENTIFIED OVER LEFT LUMBAR PARAVERTEBRAL MUSCLES AND INTO THE LEFT SACRUM. SLOW TO RISE TO STANDING POSITION. GAIT SLOW, ANTALGIC. DIAGNOSTIC TESTS REVIEWEDMRI OF HIPS COMPLETED 04/10/17 DEMONSTRATES MILD DEGENERATIVE CHANGES BILATERAL HIPS. REVIEWED WITH PT AND . ASSESSMENTS TROCHANTERIC BURSITIS OF LEFT HIP - M70.62 (PRIMARY) MYALGIA - M79.1 (PRIMARY) LEFT HIP PAIN - M25.552 TREATMENT TROCHANTERIC BURSITIS OF LEFT HIP ARTHROCENTESIS INJECTION LARGE JOINT ([id number])ALEKSANDER HIRSCH 05/10/2017 9:36:29 AM > LEFT NOTES: ICE PACK TO LOW BACK AND LEFT HIP FOR 5 - 10 MINUNTES 2-3 TIMES PER DAYHOLD DIABETES MEDS MORNING OF PROCEDURE. PREVENTIVE MEDICINE PAIN CLINIC TEACHING: PROCEDURE TEACHING PRE-PROCEDURE TEACHING DONE. QUESTIONS ANSWERED. PATIENT AND HER VERBALIZE UNDERSTANDING.. PROCEDURE CODES FA211 ESTABILISHED PATIENT [facility] FACILITY CHARGE A8616 PAIN ASSESS POS TOOL F/U PLAN DOC G8427 DOC MEDS VERIFIED W/PT OR RE DISPOSITION & COMMUNICATION FOLLOW UP AFTER INJECTION (REASON: CHECK AUTH FOR LEFT TROCANTERIC HIP BURSA INJECTION - REQUESTION IV SEDATION) ELECTRONICALLY SIGNED BY JARED APONTE ON 05/30/2017 AT 08:44 AM EDT DISCLAIMER : THIS IS A VISIT SUMMARY EXTRACTED FROM THE [employer] CHART. IT IS NOT A COPY OF THE [employer] PROGRESS NOTE. MIRANDA
== END | disposition home or self-care (01) ==
LOC: M PAIN 09:00
PROVIDERS: ATTEND Nurse Practitioner Family
DX: G89.29 Other chronic pain (principal); M70.62 Trochanteric bursitis, left hip; M79.1 Myalgia; M25.552 Pain in left hip; K21.9 Gastro-esophageal reflux disease without esophagitis; I10 Essential (primary) hypertension; E78.00 Pure hypercholesterolemia, unspecified; E03.9 Hypothyroidism, unspecified; E11.9 Type 2 diabetes mellitus without complications; M19.90 Unspecified osteoarthritis, unspecified site; J45.909 Unspecified asthma, uncomplicated; K58.0 Irritable bowel syndrome with diarrhea; Z79.899 Other long term (current) drug therapy; Z79.84 Long term (current) use of oral hypoglycemic drugs; Z91.013 Allergy to seafood; Z91.018 Allergy to other foods; Z91.030 Bee allergy status; Z88.0 Allergy status to penicillin; Z88.5 Allergy status to narcotic agent; F17.210 Nicotine dependence, cigarettes, uncomplicated; Y93.89 Activity, other specified

== ENCOUNTER 2017-12-06 10:27 | Emergency (ER) | payer MEDICARE, OTHER ==
[2017-12-06] MEDS: NS 1,000 ML IV (11:15)
[2017-12-06 11:30] LABS: KETONE, URINE AUTO RFX NEGATIVE (NEGATIVE); MUCUS, URINE RFX SMALL (NEGATIVE); NITRITE, URINE AUTO RFX NEGATIVE (NEGATIVE); RBC, URINE AUTO RFX 3 /HPF (0-3); SPECIFIC GRAVITY UR AUTO RFX 1.018 (1.002-1.035); SQUAM EPITHELIAL CELL UR AURFX 3 /HPF (0-6); WBC, URINE AUTO RFX 2 /HPF (0-3)
[2017-12-06 11:35] LABS: LEUKOCYTE ESTERASE UR AUTO RFX TRACE (NEGATIVE)
[2017-12-06 11:39] LABS: BASO # 0.1 10^3/uL (0.0-0.2); BASO % 0.6 % (0.0-1.0); EOS # 0.3 10^3/uL (0.0-0.50); EOS % 2.9 % (0.0-3.0); HEMATOCRIT 34.4 % (36.0-47.0); HEMOGLOBIN 11.4 g/dl (12.0-16.0); IMMATURE GRANULOCYTE % 0.4 % (0-3.0); LYMPH # 3.7 10^3/uL (1.5-4.5); LYMPH % 33.6 % (24.0-44.0); MEAN CORPUSCULAR HGB CONC 33.1 g/dl (32.0-36.5); MEAN CORPUSCULAR VOLUME 81.3 fl (80.0-96.0); MONO # 0.7 10^3/uL (0.0-0.8); MONO % 6.6 % (0.0-5.0); NEUTROPHILS # 6.1 10^3/uL (1.8-7.7); NEUTROPHILS % 55.9 % (36.0-66.0); PLATELET COUNT, AUTOMATED 310 10^3/uL (150-450); RED BLOOD COUNT 4.23 10^6/uL (4.00-5.40); RED CELL DISTRIBUTION WIDTH 14.7 % (11.5-14.5)
[2017-12-06 12:08] LABS: ALBUMIN 3.6 GM/DL (3.2-5.2); ALBUMIN/GLOBULIN RATIO 1.16 (1.00-1.93); ALKALINE PHOSPHATASE 65 U/L (45-117); ALT/SGPT 22 U/L (12-78); AMYLASE 27 U/L (25-115); ANION GAP 7 MEQ/L (8-16); AST/SGOT 19 U/L (7-37); BILIRUBIN,DIRECT < 0.1 MG/DL (0.0-0.2); BILIRUBIN,TOTAL 0.3 MG/DL (0.2-1.0); BLOOD UREA NITROGEN 23 MG/DL (7-18); CALCIUM LEVEL 9.2 MG/DL (8.8-10.2); CARBON DIOXIDE LEVEL 29 MEQ/L (21-32); CHLORIDE LEVEL 104 MEQ/L (98-107); CREATININE FOR GFR 0.96 MG/DL (0.55-1.30); GLOMERULAR FILTRATION RATE > 60.0 (>45); GLUCOSE, FASTING 114 MG/DL (70-100); LIPASE 150 U/L (73-393); SODIUM LEVEL 140 MEQ/L (136-145); TOTAL PROTEIN 6.7 GM/DL (6.4-8.2)
[2017-12-06] MEDS: KETOROLAC 30 MG/ML VIAL (J1885) IV (12:28)
== END 2017-12-06 14:05 | disposition home or self-care (01) ==
LOC: M ED 10:27
DX: N39.0 Urinary tract infection, site not specified (principal); I11.9 Hypertensive heart disease without heart failure; J45.909 Unspecified asthma, uncomplicated; K44.9 Diaphragmatic hernia without obstruction or gangrene; Z85.41 Personal history of malignant neoplasm of cervix uteri; M79.7 Fibromyalgia; E03.9 Hypothyroidism, unspecified; F32.9 Major depressive disorder, single episode, unspecified; F41.9 Anxiety disorder, unspecified; F17.210 Nicotine dependence, cigarettes, uncomplicated; Z88.0 Allergy status to penicillin; Z88.8 Allergy status to other drugs, medicaments and biological substances; Z91.013 Allergy to seafood; Z79.899 Other long term (current) drug therapy; Z79.84 Long term (current) use of oral hypoglycemic drugs
CPT/HCPCS: J1885

== ENCOUNTER 2018-08-27 22:11 | Emergency (ER) | payer MEDICARE, OTHER ==
[2018-08-27] MEDS: HYDROMORPHONE HCL 0.5 MG/ 0.5 ML SYRINGE (J1170 PER 1) IV (23:19)
[2018-08-28] MEDS: OXYCODONE/APAP 5MG/325MG(BULK FOR ED) 1 TABLET PO (00:56)
== END 2018-08-28 01:00 | disposition home or self-care (01) ==
LOC: M ED 08-28 01:00
DX: S46.912A Strain of unspecified muscle, fascia and tendon at shoulder and upper arm level, left arm, initial encounter (principal); X58.XXXA Exposure to other specified factors, initial encounter; Y92.9 Unspecified place or not applicable; Y93.9 Activity, unspecified; Y99.9 Unspecified external cause status; E11.9 Type 2 diabetes mellitus without complications; I10 Essential (primary) hypertension; M79.7 Fibromyalgia; Z72.0 Tobacco use; Z79.84 Long term (current) use of oral hypoglycemic drugs; Z79.899 Other long term (current) drug therapy; Z88.0 Allergy status to penicillin; Z88.8 Allergy status to other drugs, medicaments and biological substances; Z91.013 Allergy to seafood
CPT/HCPCS: J1170

== ENCOUNTER 2019-01-01 11:55 | Outpatient (RCR) | payer MEDICARE, OTHER ==
[~2019-01-01 11:55] MED LIST changes: +AMLO5TAB6; +ATOR1TAB19; +BACL10TA2; +BYDU2INJ7; +BYST10TA2; +CELE1CAP4 PO; +CLON-412; +DILA2TAB6 PO; +DIOV320T PO; +DULO1CAP3; +FENO1CAP2; +FOLI1TAB11; +HYDR-3716 PO; +HYDR25TAB; +LEVO88TA3 PO; +MACR100C43 PO; +MELO15TA28; +METF-839; +NAPR-50 PO; +OXYB10TA; +PRED10TA2; +PREG100CA; +PYRI1TAB5 PO; +VALS1TAB48
== END 2019-01-04 ==
LOC: M PT 11:55
PROVIDERS: ATTEND Psychiatry & Neurology Neurology
DX: R26.89 Other abnormalities of gait and mobility (principal)

== ENCOUNTER 2019-02-02 12:30 | Outpatient (RCR) | payer MEDICARE, OTHER ==
[~2019-02-02 12:30] MED LIST changes: -/CELE20CA OR; -/CLON1TA OR; -/ESCI20TA OR; -/ESOM40CA OR; -/ROPI1TA PO; -/WARF25TA PO; -ACET50TA PO; +CELE1CAP4 OR; +CLON-412 OR; +COUM1TAB18 PO; +CRES10TA32 OR; +FENO135C6; -FENO1CAP2; +LEXA1TAB2 OR; +MAPA500T17 PO; -NAPR-50 PO; +NAPR-837 PO; +NEXI1CAP3 OR; +OXYC1TAB23 PO; -PERCOCET PO; +REQU1TAB16 PO; -ROSU10TA OR; -VALS1TAB48; +VALS1TAB68
== END 2019-02-03 ==
LOC: M PT 12:30
PROVIDERS: ATTEND Psychiatry & Neurology Neurology
DX: R26.89 Other abnormalities of gait and mobility (principal)

== ENCOUNTER 2020-01-04 18:53 | Emergency (ER) | payer MEDICARE, OTHER ==
[~2020-01-04] VITALS: Ht 160 cm; Wt 87.3 kg
[~2020-01-04 18:53] MED LIST changes: -DULO1CAP3; +DULO1CAP6; -OXYB10TA; +OXYB10TA23
[2020-01-04 19:37] LABS: BASO # 0.1 10^3/uL (0.0-0.2); BASO % 0.5 % (0.0-1.0); EOS # 0.2 10^3/uL (0.0-0.5); EOS % 1.4 % (0.0-3.0); LYMPH # 3.4 10^3/uL (1.5-5.0); LYMPH % 28.3 % (24.0-44.0); MEAN CORPUSCULAR HEMOGLOBIN 25.1 pg (27.0-33.0); MEAN CORPUSCULAR HGB CONC 31.6 g/dl (32.0-36.5); MEAN CORPUSCULAR VOLUME 79.5 fl (80.0-96.0); MONO % 8.5 % (0.0-5.0); NEUTROPHILS # 7.3 10^3/uL (1.5-8.5); NEUTROPHILS % 60.8 % (36.0-66.0); PLATELET COUNT, AUTOMATED 406 10^3/uL (150-450); RED BLOOD COUNT 4.78 10^6/uL (4.00-5.40); WHITE BLOOD COUNT 11.9 10^3/uL (4.0-10.0)
[2020-01-04] MEDS ORDERED: IPRATROPIUM 0.5MG/ALBUTEROL 2.5MG INH SOL UD 3ML (DUONEB)(J7620) NEB ONE (20:00)
[2020-01-04 20:02] LABS: BLOOD UREA NITROGEN 22 MG/DL (7-18); CALCIUM LEVEL 9.9 MG/DL (8.8-10.2); CARBON DIOXIDE LEVEL 29 MEQ/L (21-32); CHLORIDE LEVEL 106 MEQ/L (98-107); CK-MB VALUE MASS < 1.0 NG/ML (<3.6); CPK CREATINE PHOSPHOKINASE 49 U/L (26-192); CREATININE FOR GFR 1.02 MG/DL (0.55-1.30); GLUCOSE, FASTING 98 MG/DL (70-100); MB/CK RELATIVE INDEX 2.04 (< OR =4); NT-PRO BNP 682 PG/ML (<125); POTASSIUM SERUM 3.9 MEQ/L (3.5-5.1); SODIUM LEVEL 140 MEQ/L (136-145); TROPONIN I < 0.02 NG/ML (< 0.10)
[2020-01-04] MEDS ORDERED: FERR325T16 PO (20:14)
[2020-01-04] MEDS ORDERED: MAGN400C PO (20:14)
[2020-01-04 20:30] VITALS: BP 167/89
--- NOTE | 2020-01-04 21:18 | REPVR ---
PROCEDURE INFORMATION: Exam: CT Chest Without Contrast Exam date and time: 01/04/2020 8:45 PM Age: 69 years old Clinical indication: Chest pain; Additional info: ? Lll infiltrate, cm, chf TECHNIQUE: Imaging protocol: Computed tomography of the chest without contrast. 3D rendering: MIP and/or 3D reconstructed images were created by the technologist. Radiation optimization: All CT scans at this facility use at least one of these dose optimization techniques: automated exposure control; mA and/or kV adjustment per patient size (includes targeted exams where dose is matched to clinical indication); or iterative reconstruction. COMPARISON: 1. CR PORTABLE CHEST X-RAY 01/04/2020 7:58 PM (The report from this study was not available for review at the time of this interpretation.) 2. SR - CT ABD PELVIS W/O CONTRAST 12/06/2017 11:15:05 AM (The report from this study was not available for review at the time of this interpretation.) FINDINGS: Tracheobronchial tree: Patent. Lungs: There are mild paraseptal emphysematous changes in the upper lobes. There is atelectasis in the inferior lingula. Mild dependent atelectasis is also present in both lower lobes. No lung consolidation or mass is noted. Pleural space: Normal. No pneumothorax or pleural effusion. Heart: The heart is mildly enlarged. There are coronary artery calcifications. No pericardial effusion is present. Incidental note is made of increased fat in the left cardiophrenic angle. Mediastinum: No mediastinal mass, hemorrhage, or pneumomediastinum is noted. Pulmonary arteries: The pulmonary artery trunk is dilated and measures 3.2 cm in diameter, which can be seen with pulmonary artery hypertension. Aorta: No thoracic aortic aneurysm or intramural hematoma is noted. There are mild to moderate atherosclerotic calcifications. Lymph nodes: There are subcentimeter mediastinal lymph nodes. However, no abnormally enlarged lymph nodes measuring greater than 1 cm in short axis are noted. Diaphragm: Intact. Bones/joints: There is no acute fracture or dislocation. There is a chronic mild anterior wedge compression fracture of T11 and a large Schmorl's node in the superior endplate of T11, which are similar in appearance compared to the prior CT abdomen and pelvis on 12/06/2017. No radiolucent fracture line or retropulsion of the cortex is noted. There is no suspicious osteolytic or osteoblastic lesion. There are degenerative changes in the thoracic spine. Soft tissues: Unremarkable. No soft tissue fluid collection. IMPRESSION: 1. No acute findings in the chest. No CT findings present to indicate pneumonia. 2. Mild cardiomegaly. 3. Dilation of the pulmonary artery trunk, which may indicate pulmonary artery hypertension. 4. Chronic mild anterior wedge compression fracture of T11, which is similar in appearance compared to the prior CT abdomen and pelvis on 12/06/2017. Electronically signed by: Chuck Molina On 01/04/2020 21:18:38 PM
[2020-01-04] MEDS ORDERED: IPRA0.00 NEB (21:30)
--- NOTE | 2020-01-05 08:23 | REP ---
Portable chest x-ray: Single view. History: Chest pain. Comparison study: December 15, 2013. Findings: Cardiomegaly is observed. There are increased markings along the left heart border in the left base suggesting discoid atelectatic change versus subtle infiltrate. Pleural angles are sharp. The thoracic aorta is somewhat tortuous and calcific. There are degenerative changes in the thoracic spine. Impression: Plate-like atelectasis left base versus infiltrate. Mild cardiomegaly. Electronically Signed by Manny Rojas MD 01/05/2020 08:15 A
--- NOTE | 2020-01-06 01:03 | ECGEPIP ---
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
== END 2020-01-04 22:21 | disposition home or self-care (01) ==
LOC: M ED 18:53
DX: J98.01 Acute bronchospasm (principal); J44.9 Chronic obstructive pulmonary disease, unspecified; S22.000A Wedge compression fracture of unspecified thoracic vertebra, initial encounter for closed fracture; X58.XXXA Exposure to other specified factors, initial encounter; Y92.9 Unspecified place or not applicable; Y93.9 Activity, unspecified; Y99.9 Unspecified external cause status; I28.8 Other diseases of pulmonary vessels; I51.7 Cardiomegaly; R05 Cough; E11.9 Type 2 diabetes mellitus without complications; I10 Essential (primary) hypertension; E78.5 Hyperlipidemia, unspecified; K21.9 Gastro-esophageal reflux disease without esophagitis; G25.81 Restless legs syndrome; F17.200 Nicotine dependence, unspecified, uncomplicated; Z79.84 Long term (current) use of oral hypoglycemic drugs; Z79.899 Other long term (current) drug therapy; Z88.0 Allergy status to penicillin; Z88.8 Allergy status to other drugs, medicaments and biological substances; Z91.018 Allergy to other foods

== ENCOUNTER → 2023-01-21 | Outpatient (CLI) | payer MEDICARE, OTHER ==
[~2023-01-21] MED LIST changes: +AMLO1TAB24; -AMLO5TAB6; +FERR324T21 PO; +HYDR-3490; -HYDR25TAB; +IPRA0.00 NEB; +MAGN400C PO
[2023-01-21 12:01] LABS: HEMOGLOBIN A1c 7.1 % (4.0-6.0)
== END ==
LOC: M LAB 08:51
PROVIDERS: ATTEND Physician Assistant
DX: E11.9 Type 2 diabetes mellitus without complications (principal)

== ENCOUNTER → 2024-08-07 | Outpatient (CLI) | payer MEDICARE, OTHER ==
[~2024-08-07] MED LIST changes: -BYST10TA2; +BYST1TAB3
[2024-08-07 12:08] LABS: HEMOGLOBIN A1c 7.1 % (4.0-6.0)
== END ==
LOC: M LAB 10:44
PROVIDERS: ATTEND Physician Assistant
DX: E11.9 Type 2 diabetes mellitus without complications (principal)

== ENCOUNTER → 2024-10-06 | Outpatient (RCR) | payer MEDICARE, OTHER | LOC: M PT 09-22 12:56 | PROVIDERS: ATTEND Physician Assistant | DX: R29.6 Repeated falls (principal) ==

== ENCOUNTER 2024-10-27 13:00 | Outpatient (RCR) | payer MEDICARE, OTHER | END 2024-11-06 | LOC: M PT 13:00 | PROVIDERS: ATTEND Physician Assistant | DX: R29.6 Repeated falls (principal); R26.89 Other abnormalities of gait and mobility; R26.81 Unsteadiness on feet ==

== ENCOUNTER → 2025-06-14 | Outpatient (CLI) | payer MEDICARE, OTHER ==
[~2025-06-14] MED LIST changes: -BYDU2INJ7; +EXEN2AUT; +PREG-35; -PREG100CA
== END ==
LOC: M WUC 10:16
PROVIDERS: ATTEND Student in an Organized Health Care Education/Training Program
DX: M25.511 Pain in right shoulder (principal)